=== PATIENT | male | born 1950 | race Caucasian/White ===

== ENCOUNTER 2016-12-19 13:34 | Inpatient (IN) | payer OTHER ==
[2016-12-19] VITALS (8 sets, daily range): BP systolic 121–157; BP diastolic 57–103
--- NOTE | 2016-12-19 16:16 | PDOC ---
PROGRESS NOTES Subjective Subjective Pt. with obstructing 10 X 5 mm right proximal ureteral stone Objective Objective right proximal ureteral stone Physical Exam Physical Exam Tender right flank and abdomen Assessment Assessment I discussed with the patient his stone and we discussed the options, alternatives, benefits, risks, and possible complications of medical expulsive therapy vs. surgical intervention with cystoscopy, right retrograde pyelogram, and possible right ureteral stent placement. Pt. understands and wishes to proceed with operation. Will proceed accordingly. Comment Review of Relevant I have reviewed the following items pili (where applicable) has been applied. LYLA VALLE MD Dec 19, 2016 16:16
[2016-12-19] MEDS ORDERED: PROPOFOL 20 ML IV ONE (16:26)
[2016-12-19] MEDS ORDERED: LIDOCAINE 1% PF 5 ML VIAL. ONE (16:26)
[2016-12-19] MEDS ORDERED: ONDANSETRON PF 4 MG/2 ML VIAL. ONE ×2 (16:26→17:35)
[2016-12-19] MEDS ORDERED: CEFAZOLIN 2GM PREMIX 50 ML IV ONE ×2 (16:30→16:45)
[2016-12-19] MEDS ORDERED: IOHEXOL 300 MG/ML 50 ML VIAL. ONE (16:43)
[2016-12-19] MEDS ORDERED: LIDOCAINE 2% JELLY 6ML IN APPLICATOR. ONE (16:43)
[2016-12-19] MEDS ORDERED: FENTANYL PF 100 MCG/2 ML VIAL. ONE (16:52)
[2016-12-19] MEDS ORDERED: DEXAMETHASONE SOD PHOS 20 MG/5 ML VIAL. ONE (17:35)
[2016-12-19] MEDS ORDERED: FAMOTIDINE 20 MG/2 ML VIAL ONE (17:35)
[2016-12-19] MEDS ORDERED: IV RINGERS,LACTATED 1000ML 1,000 ML IV SCH (17:48)
[2016-12-19] MEDS ORDERED: HYDROMORPHONE 2 MG/ML VIAL. IV PRN (18:00)
[2016-12-19] MEDS ORDERED: MORPHINE SULFATE 2 MG/ML DISP.SYRIN. IV PRN ×2 (18:00→22:30)
[2016-12-19] MEDS ORDERED: ONDANSETRON PF 4 MG/2 ML VIAL. IV PRN (18:00)
[2016-12-19] MEDS ORDERED: LIDOCAINE 1% 1 ML SYRINGE. ID PRN (18:00)
[2016-12-19] MEDS ORDERED: PROCHLORPERAZINE 10 MG/2 ML VIAL. IV PRN (18:00)
[2016-12-19] MEDS ORDERED: FENTANYL PF 100 MCG/2 ML VIAL. IV PRN (18:00)
[2016-12-19] MEDS ORDERED: SEVOFLURANE 31 TO 60 MINUTES. IH ONE (18:05)
[2016-12-19] MEDS ORDERED: SEVOFLURANE 16 TO 30 MINUTES. IH ONE (18:05)
[2016-12-19] MEDS ORDERED: SEVOFLURANE 61 TO 120 MINUTES. IH ONE (18:05)
[2016-12-19] MEDS ORDERED: METF500T4 PO (18:08)
--- NOTE | 2016-12-19 18:16 | PDOC4 ---
Operative Note Operative Note pre-op dx-right ureteral stone post-op dx-same with urethral stricture procedure-cystoscopy, right retrograde pyelogram, right ureteral stent placement , smith catheter placement surgeon-danitza diaz-general Pt. to PACU in stable condition LYLA VALLE MD Dec 19, 2016 18:16
[2016-12-19] MEDS: FENTANYL PF 100 MCG/2 ML VIAL. IV PRN ×3 (18:36→21:02)
[2016-12-19] MEDS ORDERED: PNEUMOCOCCAL VAX SCREEN BY RX. MC PRN (18:45)
--- NOTE | 2016-12-19 22:38 | OP ---
DATE OF SURGERY: 12/19/2016 OPERATION: Cystoscopy, right retrograde pyelogram; right ureteral stent placement and Tavares catheter placement. SURGEON: Lyla Atkinson MD ANESTHESIA: General. PREOPERATIVE DIAGNOSIS: Right ureteral stone. POSTOPERATIVE DIAGNOSIS: Right ureteral stone with urethral stricture. INDICATIONS: The patient is a very pleasant 66-year-old white male, who presented with right-sided flank and abdominal pain, was found to have a 10 x 5 mm right proximal ureteral stone with obstruction. The patient continues to have right renal colic. I discussed with the patient the option of alternatives, benefits, risks and possible complications of medical expulsive therapy versus surgical intervention with cystoscopy, right retrograde pyelogram, possible right ureteral stent placement. He understands this and he wish to proceed ahead with operation. DESCRIPTION OF PROCEDURE: After obtaining informed consent, the patient was taken to operating room and after an excellent general anesthetic, the patient was placed in a dorsolithotomy position. Groin was prepped and draped in sterile fashion. The patient was preloaded with IV antibiotics. Panendoscopy and cystoscopy were then performed with the 30 and 70-degree lens and the 21-Frisian cystoscope sheath. Penile urethra was found grossly normal. The patient noted to have a fairly tight, but soft bulbar urethral stricture, which was able to be dilated with the beak of the cystoscope under direct vision. External sphincter appeared intact. Prostatic urethra showed some moderate bilobar enlargement. Bladder was entered and inspected. The patient noted to have moderate trabeculation of bladder. Both ureteral orifices were identified and found to be grossly patent. On fluoroscopy, the stone was seen in the area of the right proximal ureter, right retrograde pyelogram was performed and the filling defect was seen in the right proximal ureter, consistent with the patient's stone with dilation of the right proximal ureter, renal pelvis and calices. Following this, floppy-tipped ZIPwire was passed up the right ureter, past the stone to the right kidney and it appeared that the stone rolled back to the right renal pelvis at the time of the floppy-tipped ZIPwire placement. Following this, a 6 x 28 double-J stent was then passed up the ZIPwire, placing one curl in the renal pelvis and the other curl in the bladder and the ZIPwire removed. Stent position was confirmed with fluoroscopy and direct vision, found to be in good position. Following this, the cystoscope was withdrawn from the patient and a 16-Frisian Tavares catheter placed per urethra and bladder connected to gravity drainage. Clear drainage was noted. Therefore, Tavares balloon was inflated and the catheter connected to gravity drainage and secured the patient's left thigh with a StatLock. The patient tolerated the procedure very well, was taken to recovery room in stable condition. Plan will be to remove the Tavares catheter in the first postoperative morning then the patient discharged home and then have him follow up with Urology in the next week ____ schedule definitive treatment of the stone as an outpatient with either ESWL or ureteroscopy and laser lithotripsy. LYLA ATKINSON MD DR: SANGEETA/alis JOB#: [id number] / [id number]
[2016-12-19] MEDS: HYDROCODONE/APAP 5/325MG TABLET. PO PRN (23:33)
[2016-12-19] MEDS: DOCUSATE SODIUM 100 MG CAPSULE. PO SCH (23:33)
[2016-12-19] MEDS: MORPHINE SULFATE 4 MG/ML DISP.SYRIN. IV PRN (23:34)
[2016-12-19] MEDS: IV NORMAL SALINE 1000ML BAG 1,000 ML IV SCH (23:35)
--- NOTE | 2016-12-20 00:21 | HP ---
ADMIT DATE: 12/19/2016 CHIEF COMPLAINT: Flank pain. HISTORY OF PRESENT ILLNESS: The patient is a pleasant middle-aged male who presents with right flank pain has been occurring for several days. IMAGING STUDIES: The ER showing a right 9 mm stone, the ER doctor has called me, we are transferring the patient for Urology consultation. The patient has just been taken to the OR for cystoscopy with ureteral stent placement. I discussed the case with Dr. Atkinson. The patient is now being examined in the postop area. PAST MEDICAL HISTORY: Diabetes. ALLERGIES: None. FAMILY HISTORY: Renal stone. SOCIAL HISTORY: Does not drink, smoke or take drugs. MEDICATIONS: Reviewed, please refer to the MRAD. REVIEW OF SYSTEMS: Unobtainable, the patient is too confused. He is still ____. PHYSICAL EXAMINATION: VITAL SIGNS: Temperature afebrile, pulse 63, respirations 18, blood pressure 122/57. GENERAL: He is sleeping. In the postop area, he awakens, he is confused. HEART: Distant S1, S2. LUNGS: Clear. ABDOMEN: Soft, positive bowel sounds. EXTREMITIES: No edema. SKIN: No rashes. ENDOCRINE: No thyromegaly. LYMPHATICS: No cervical nodes. HEMATOPOIETIC: No bruising. LABORATORY DATA: Pending. ASSESSMENT AND PLAN: Postop cystoscopy with right ureteral stent placement with a 9 mm stone. The patient has been admitted. We were given IV fluids, IV antibiotics, IV narcotics. Hope to discharge tomorrow if he is doing better. ROOPA LOYOLA DO DR: JOSÉ LUIS/alis JOB#: [id number] / [id number]
[2016-12-20] MEDS: CEFAZOLIN SODIUM 1 GM in IV NORMAL SALINE 50ML 50 ML IV SCH ×3 (01:00→17:00)
[2016-12-20] MEDS: MORPHINE SULFATE 4 MG/ML DISP.SYRIN. IV PRN (02:20)
[2016-12-20 03:09] VITALS: BP 103/51
[2016-12-20 07:00] VITALS: BP 125/70
[2016-12-20 08:03] LABS: HEMATOCRIT 41.9 % (39.0-53.0); HEMOGLOBIN 13.9 g/dL (13.0-17.5); RED BLOOD COUNT 4.66 x10^6/uL (4.30-5.70); RED CELL DISTRIBUTION WIDTH 13.3 % (11.5-14.5); WHITE BLOOD COUNT 10.9 x10^3/uL (4.0-11.0)
[2016-12-20 08:31] LABS: CALCIUM 8.2 mg/dL (8.5-10.1); CREATININE 1.2 mg/dL (0.7-1.3); POTASSIUM 4.1 mmol/L (3.5-5.1)
--- NOTE | 2016-12-20 08:39 | PDOC ---
PROGRESS NOTES Subjective Subjective Pt. feeling ok Objective Objective Vital Signs Date Time Temp Pulse Resp B/P Pulse Ox O2 Delivery O2 Flow Rate FiO2 12/20/16 07:00 98.2 55 20 125/70 96 Room Air 98.2 12/19/16 18:43 10.0 Intake and Output 12/20/16 07:00 Intake Total 1080 ml Output Total 1150 ml Balance -70 ml Intake Oral 480 ml IV Total 600 ml Output Urine Total 1150 ml Estimated Blood Loss 0 ml Physical Exam Physical Exam smith in place urine clear Assessment Assessment Smith removed Home today Follow up 1-2 weeks Probable ESWL in 2-3 weeks Comment Review of Relevant I have reviewed the following items pili (where applicable) has been applied. Labs Laboratory Tests Test 12/19/16 16:50 12/20/16 06:50 Glucose (Fingerstick) 125mg/dL (70-99) White Blood Count 10.9x10^3/uL (4.0-11.0) Red Blood Count 4.66x10^6/uL (4.30-5.70) Hemoglobin 13.9g/dL (13.0-17.5) Hematocrit 41.9% (39.0-53.0) Mean Corpuscular Volume 90fL (79-100) Mean Corpuscular Hemoglobin 30pg (25-35) Mean Corpuscular Hemoglobin Concent 33g/dL (31-37) Red Cell Distribution Width 13.3% (11.5-14.5) Platelet Count 192x10^3/uL (140-400) Sodium Level 141mmol/L (136-145) Potassium Level 4.1mmol/L (3.5-5.1) Chloride Level 106mmol/L (98-107) Carbon Dioxide Level 24mmol/L (21-32) Anion Gap 11 (6-14) Blood Urea Nitrogen 18mg/dL (8-26) Creatinine 1.2mg/dL (0.7-1.3) Estimated GFR (Cockcroft-Gault) 61.0 Glucose Level 161mg/dL (70-99) Calcium Level 8.2mg/dL (8.5-10.1) Laboratory Tests Test 12/19/16 16:50 12/20/16 06:50 Glucose (Fingerstick) 125mg/dL (70-99) White Blood Count 10.9x10^3/uL (4.0-11.0) Red Blood Count 4.66x10^6/uL (4.30-5.70) Hemoglobin 13.9g/dL (13.0-17.5) Hematocrit 41.9% (39.0-53.0) Mean Corpuscular Volume 90fL (79-100) Mean Corpuscular Hemoglobin 30pg (25-35) Mean Corpuscular Hemoglobin Concent 33g/dL (31-37) Red Cell Distribution Width 13.3% (11.5-14.5) Platelet Count 192x10^3/uL (140-400) Sodium Level 141mmol/L (136-145) Potassium Level 4.1mmol/L (3.5-5.1) Chloride Level 106mmol/L (98-107) Carbon Dioxide Level 24mmol/L (21-32) Anion Gap 11 (6-14) Blood Urea Nitrogen 18mg/dL (8-26) Creatinine 1.2mg/dL (0.7-1.3) Estimated GFR (Cockcroft-Gault) 61.0 Glucose Level 161mg/dL (70-99) Calcium Level 8.2mg/dL (8.5-10.1) Medications Current Medications Ondansetron HCl 4 mg 4 mg STK-MED ONCE .ROUTE ; Start 12/19/16 at 16:26; Stop at 16:27; Status DC Propofol (Diprivan) 20 ml @ As Directed STK-MED ONCE IV ; Start 12/19/16 at 16: 26; Stop 12/19/16 at 16:27; Status DC Lidocaine HCl 5 ml 5 ml STK-MED ONCE .ROUTE ; Start 12/19/16 at 16:26; Stop 06/27 at 16:27; Status DC Cefazolin Sodium/ Dextrose (Ancef 2gm Premix) 50 ml @ As Directed STK-MED ONCE IV ; Start 12/19/16 at 16:30; Stop 12/19/16 at 16:31; Status DC Lidocaine HCl (Glydo (Lidocaine) Jelly) 6 judy STK-MED ONCE .ROUTE Last administered on 12/19/16t 18:02; Start 12/19/16 at 16:43; Stop 12/19/16 at 16:44 ; Status DC Iohexol (Omnipaque 300 Mg/ml) 50 ml STK-MED ONCE .ROUTE Last administered on 17:17; Start 12/19/16 at 16:43; Stop 12/19/16 at 16:44; Status DC Lidocaine HCl 6 judy 6 judy STK-MED ONCE .ROUTE Last administered on 12/19/16 18 :02; Start 12/19/16 at 16:43; Stop 12/19/16 at 16:44; Status DC Cefazolin Sodium/ Dextrose (Ancef 2gm Premix) 50 ml @ 100 mls/hr 1X ONCE IV Last administered on 12/19/16 17:21; Start 12/19/16 at 16:45; Stop 12/19/16 at 17:14; Status DC Fentanyl Citrate (Fentanyl 2ml Vial) 100 mcg STK-MED ONCE .ROUTE ; Start at 16:52; Stop 12/19/16 at 16:53; Status DC Dexamethasone Sodium Phosphate (Decadron) 20 mg STK-MED ONCE .ROUTE ; Start 06/27 at 17:35; Stop 12/19/16 at 17:36; Status DC Famotidine (Pepcid) 20 mg STK-MED ONCE .ROUTE ; Start 12/19/16 at 17:35; Stop at 17:36; Status DC Ondansetron HCl (Zofran) 4 mg STK-MED ONCE .ROUTE ; Start 12/19/16 at 17:35; Stop 12/19/16 at 17:36; Status DC Ondansetron HCl (Zofran) 4 mg PRN Q6HRS PRN IV NAUSEA/VOMITING; Start 12/19/16 at 18:00; Stop 12/20/16 at 17:59 Fentanyl Citrate (Fentanyl 2ml Vial) 25 mcg PRN Q5MIN PRN IV MILD PAIN; Start 12/19/16 at 18:00; Stop 12/20/16 at 17:59 Fentanyl Citrate (Fentanyl 2ml Vial) 50 mcg PRN Q5MIN PRN IV MODERATE PAIN Last administered on 12/19/16 21:02; Start 12/19/16 at 18:00; Stop 12/20/16 at 17:59 Morphine Sulfate 1 mg 1 mg PRN Q10MIN PRN IV SEVERE PAIN; Start 12/19/16 at 18: 00; Stop 12/20/16 at 17:59 Lactated Ringer's (Iv Lactated Ringers) 1,000 ml @ 0 mls/hr Q0M IV ; Start 06/27 at 17:48; Stop 12/20/16 at 05:47; Status DC Lidocaine HCl 2 ml PRN 1X PRN ID PRIOR TO IV START; Start 12/19/16 at 18:00; Stop 12/20/16 at 17:59 Hydromorphone HCl (Dilaudid) 0.5 mg PRN Q10MIN PRN IV SEV PAIN, Second choice; Start 12/19/16 at 18:00; Stop 12/20/16 at 17:59 Prochlorperazine Edisylate (Compazine) 5 mg PACU PRN PRN IV NAUSEA, MRX1; Start 12/19/16 at 18:00; Stop 12/20/16 at 17:59 Sevoflurane (Ultane) 60 ml STK-MED ONCE IH ; Start 12/19/16 at 18:05; Stop 12/19 at 18:06; Status DC Sevoflurane (Ultane) 15 ml STK-MED ONCE IH ; Start 12/19/16 at 18:05; Stop 12/19 at 18:06; Status DC Sevoflurane 30 ml 30 ml STK-MED ONCE IH ; Start 12/19/16 at 18:05; Stop at 18:06; Status DC Cefazolin Sodium/ Sodium Chloride (Ancef/Iv Sodium Chloride 0.9% 50ml) 50 ml @ 100 mls/hr Q8H IV Last administered on 12/20/16t 01:00; Start 12/20/16 at 01:00 Pneumococcal Polyvalent Vaccine (Do NOT chart on this placeholder) 1 each PRN 1X PRN MC SEE COMMENTS; Start 12/19/16 at 18:45; Status UNV Pneumococcal Polyvalent Vaccine (Pneumovax 23) 0.5 ml ONCE ONCE VAX IM ; Start 12/20/16 at 09:00; Stop 12/20/16 at 09:01 Morphine Sulfate 2 mg PRN Q2HR PRN IV PAIN; Start 12/19/16 at 22:30 Morphine Sulfate 4 mg PRN Q2HR PRN IV PAIN Last administered on 12/20/16 02:20 ; Start 12/19/16 at 22:30 Acetaminophen/ Hydrocodone Bitart (Lortab 5/325) 1 tab PRN Q4HRS PRN PO PAIN Last administered on 12/19/16 23:33; Start 12/19/16 at 22:30 Docusate Sodium 100 mg 100 mg BID PO Last administered on 12/19/16 23:33; Start 12/19/16 at 22:30 Sodium Chloride (Iv Sodium Chloride 0.9% 1000ml Bag) 1,000 ml @ 75 mls/hr [id number] IV Last administered on 12/19/16 23:35; Start 12/19/16 at 22:30 Active Scripts Active Reported Metformin Hcl 500 Mg Tablet 1 Tab PO BID Vitals/I & O Vital Sign - Last 24 Hours 12/19/16 12/19/16 12/19/16 12/19/16 16:00 16:00 16:30 18:12 Temp 97.4 97.8 97.4 97.8 Pulse 73 57 Resp 18 20 B/P 121/87 158/91 Pulse Ox 98 97 O2 Delivery Room Air Room Air Room Air Mask O2 Flow Rate 10 12/19/16 12/19/16 12/19/16 12/19/16 18:12 18:27 18:36 18:40 Temp 97.4 97.4 Pulse 83 62 Resp 18 18 B/P 154/81 149/78 Pulse Ox 95 100 100 O2 Delivery Simple Mask Simple Mask Simple Mask Room Air O2 Flow Rate 10 10 10.0 12/19/16 12/19/16 12/19/16 12/19/16 18:42 18:43 19:15 19:30 Temp 99.1 98.1 98.3 99.1 98.1 98.3 Pulse 62 95 72 Resp 18 18 20 B/P 157/73 147/76 157/71 Pulse Ox 98 100 95 94 O2 Delivery Room Air Room Air Room Air Room Air O2 Flow Rate 10.0 12/19/16 12/19/16 12/19/16 12/19/16 19:45 20:00 20:15 20:45 Temp 98.3 98.1 98.3 98.3 98.1 98.3 Pulse 68 61 63 Resp 18 18 18 B/P 148/89 140/74 149/84 Pulse Ox 94 95 95 O2 Delivery Room Air Room Air Room Air Room Air 12/19/16 12/19/16 12/19/16 12/19/16 21:02 21:45 21:53 23:29 Temp 98.1 98.0 98.1 98.0 Pulse 58 70 Resp 18 18 18 B/P 122/57 149/103 Pulse Ox 98 100 O2 Delivery Room Air Room Air Room Air Room Air 12/19/16 12/19/16 12/20/16 12/20/16 23:33 23:34 00:38 02:20 Resp 18 18 18 18 O2 Delivery Room Air Room Air Room Air Room Air 12/20/16 12/20/16 12/20/16 03:09 03:09 07:00 Temp 98.1 98.2 98.1 98.2 Pulse 67 55 Resp 18 18 20 B/P 103/51 125/70 Pulse Ox 95 96 O2 Delivery Room Air Room Air Room Air Intake and Output 12/19/16 12/19/16 12/20/16 15:00 23:00 07:00 Intake Total 600 ml 480 ml Output Total 0 ml 1150 ml Balance 600 ml -670 ml LYLA VALLE MD Dec 20, 2016 08:39
[2016-12-20] MEDS: DOCUSATE SODIUM 100 MG CAPSULE. PO SCH (08:45)
[2016-12-20] MEDS ORDERED: PNEUMOC CONJ VACC 23-VALENT 0.5 ML VIAL. VAX IM ONE (09:00)
--- NOTE | 2016-12-20 10:38 | RAD ---
KUB, 12/20/2016: History: Check stent placement This exam is correlated with an outside CT study from 12/19/2016. A right ureteral stent has been placed in satisfactory position. The calculus which previously was positioned in the proximal right ureter appears to have been displaced back into the right renal collecting system. A similar sized calculus is again noted in the lower pole of the left kidney. The abdominal gas pattern is unremarkable. There is no evidence of organomegaly. IMPRESSION: 1. The right ureteral stent is in satisfactory position. 2. The proximal right ureteral calculus has been displaced back into the right renal collecting system. 3. Nonobstructing left intrarenal calculus.
[2016-12-20 11:00] VITALS: BP 130/62
--- NOTE | 2016-12-20 11:35 | CONS ---
DATE OF CONSULTATION: 12/19/2016 LOCATION: The patient is in room 432. HISTORY OF PRESENT ILLNESS: The patient is a very pleasant 66-year-old white male who was transferred over from [place] with a right proximal ureteral stone. The patient first started becoming symptomatic this morning with right flank and abdominal pain. The patient with no prior history of any stones. The patient continues to have right flank and abdominal pain. Past medical history is significant for diabetes and hypertension. The patient takes metformin for his diabetes, but has not been taking any medicines for his hypertension. He has no known drug allergies. He has had previous orthopedic operations in the past. No urologic operations. The patient's white count is 12.0, creatinine is 1.4. The patient's CT abdomen and pelvis show a 9 x 5 mm obstructing calculus in the right proximal ureter with moderate perinephric edema and a nonobstructing left intrarenal calculus measuring about 10 mm. PHYSICAL EXAMINATION: ABDOMEN: The patient with tenderness in the right flank and right upper and middle abdomen, otherwise soft, nontender in the rest of the abdomen. GENITOURINARY: Testes are descended bilaterally. No inguinal hernias. Phallus within normal limits. RECTAL: Good sphincter tone. Prostate smooth, nontender, without nodules, overall size 25 grams. PLAN: I talked with the patient concerning his right ureteral stone and we discussed the options, alternatives, benefits, risks and possible complications of medical expulsive therapy versus surgical intervention with cystoscopy, right retrograde pyelogram, and right ureteral stent placement to get him unobstructed. He understands this and does wish to proceed with operation, we will therefore proceed accordingly. I certainly appreciate being allowed to participate in this patient's care. LYLA VALLE MD DR: SANGEETA/alis JOB#: [id number] / [id number]
[2016-12-20] MEDS: IV NORMAL SALINE 1000ML BAG 1,000 ML IV SCH (11:50)
--- NOTE | 2016-12-20 13:43 | PDOC ---
PROGRESS NOTES Chief Complaint Chief Complaint Right Flank pain 9mm obstructing Kidney stone s/p cystoscopy with uretheral stent placement Diabetes Mellitus, non-insulin dependent History of Present Illness History of Present Illness Patient seen and evaluated at bedside. No acute events overnight. Tavares removed per Dr. Atkinson. Patient reports continuing flank pain and urethral pain. d/w nurse. Vitals Vitals Vital Signs Date Time Temp Pulse Resp B/P Pulse Ox O2 Delivery O2 Flow Rate FiO2 12/20/16 11:00 98.1 61 20 130/62 96 Room Air 98.1 12/19/16 18:43 10.0 Physical Exam General: Alert, Oriented X3, No acute distress Heart: Regular rate, Normal S1 Lungs: Clear, Other (negative accessory muscle use ) Abdomen: Normal bowel sounds, Soft, No tenderness, Other (R flank tenderness to palpation. ) Extremities: No clubbing, No cyanosis, No edema Skin: No rashes, No significant lesion, Other (Negative skin breakdown, erythema, or bleeding to glans penis. ) Labs LABS Laboratory Tests Test 12/19/16 16:50 12/20/16 06:50 Glucose (Fingerstick) 125mg/dL (70-99) White Blood Count 10.9x10^3/uL (4.0-11.0) Red Blood Count 4.66x10^6/uL (4.30-5.70) Hemoglobin 13.9g/dL (13.0-17.5) Hematocrit 41.9% (39.0-53.0) Mean Corpuscular Volume 90fL (79-100) Mean Corpuscular Hemoglobin 30pg (25-35) Mean Corpuscular Hemoglobin Concent 33g/dL (31-37) Red Cell Distribution Width 13.3% (11.5-14.5) Platelet Count 192x10^3/uL (140-400) Sodium Level 141mmol/L (136-145) Potassium Level 4.1mmol/L (3.5-5.1) Chloride Level 106mmol/L (98-107) Carbon Dioxide Level 24mmol/L (21-32) Anion Gap 11 (6-14) Blood Urea Nitrogen 18mg/dL (8-26) Creatinine 1.2mg/dL (0.7-1.3) Estimated GFR (Cockcroft-Gault) 61.0 Glucose Level 161mg/dL (70-99) Calcium Level 8.2mg/dL (8.5-10.1) Review of Systems Review of Systems (+) r flank pain (+) penile pain Denies chest pain, sob, abdominal pain, n/v/d, or fever/chills. Assessment and Plan Assessmemt and Plan Problems Medical Problems: (1) Renal stone Status: Acute Assessment: 1.) R 9mm obstructing Kidney stone 2.) POD#1 s/p cystoscopy with uretheral stent placement 3.) Diabetes Mellitus, non-insulin dependent Plan: 1.) continue IVF and pain control 2.) discharge agreeable with Dr. Atkinson; Rx for pyridine, ciprofloxacin, and pain management. 3.) f/u with Dr. Atkinson in 1-2 weeks; Probable ESWL in 2-3 weeks. f/u with pcp 4.) continue home medications 5.) activity as tolerated Problems: Comment Review of Relevant I have reviewed the following items pili (where applicable) has been applied. Labs Laboratory Tests Test 12/19/16 16:50 12/20/16 06:50 Glucose (Fingerstick) 125mg/dL (70-99) White Blood Count 10.9x10^3/uL (4.0-11.0) Red Blood Count 4.66x10^6/uL (4.30-5.70) Hemoglobin 13.9g/dL (13.0-17.5) Hematocrit 41.9% (39.0-53.0) Mean Corpuscular Volume 90fL (79-100) Mean Corpuscular Hemoglobin 30pg (25-35) Mean Corpuscular Hemoglobin Concent 33g/dL (31-37) Red Cell Distribution Width 13.3% (11.5-14.5) Platelet Count 192x10^3/uL (140-400) Sodium Level 141mmol/L (136-145) Potassium Level 4.1mmol/L (3.5-5.1) Chloride Level 106mmol/L (98-107) Carbon Dioxide Level 24mmol/L (21-32) Anion Gap 11 (6-14) Blood Urea Nitrogen 18mg/dL (8-26) Creatinine 1.2mg/dL (0.7-1.3) Estimated GFR (Cockcroft-Gault) 61.0 Glucose Level 161mg/dL (70-99) Calcium Level 8.2mg/dL (8.5-10.1) Laboratory Tests Test 12/19/16 16:50 12/20/16 06:50 Glucose (Fingerstick) 125mg/dL (70-99) White Blood Count 10.9x10^3/uL (4.0-11.0) Red Blood Count 4.66x10^6/uL (4.30-5.70) Hemoglobin 13.9g/dL (13.0-17.5) Hematocrit 41.9% (39.0-53.0) Mean Corpuscular Volume 90fL (79-100) Mean Corpuscular Hemoglobin 30pg (25-35) Mean Corpuscular Hemoglobin Concent 33g/dL (31-37) Red Cell Distribution Width 13.3% (11.5-14.5) Platelet Count 192x10^3/uL (140-400) Sodium Level 141mmol/L (136-145) Potassium Level 4.1mmol/L (3.5-5.1) Chloride Level 106mmol/L (98-107) Carbon Dioxide Level 24mmol/L (21-32) Anion Gap 11 (6-14) Blood Urea Nitrogen 18mg/dL (8-26) Creatinine 1.2mg/dL (0.7-1.3) Estimated GFR (Cockcroft-Gault) 61.0 Glucose Level 161mg/dL (70-99) Calcium Level 8.2mg/dL (8.5-10.1) Medications Current Medications Ondansetron HCl 4 mg 4 mg STK-MED ONCE .ROUTE ; Start 12/19/16 at 16:26; Stop at 16:27; Status DC Propofol (Diprivan) 20 ml @ As Directed STK-MED ONCE IV ; Start 12/19/16 at 16: 26; Stop 12/19/16 at 16:27; Status DC Lidocaine HCl 5 ml 5 ml STK-MED ONCE .ROUTE ; Start 12/19/16 at 16:26; Stop 06/27 at 16:27; Status DC Cefazolin Sodium/ Dextrose (Ancef 2gm Premix) 50 ml @ As Directed STK-MED ONCE IV ; Start 12/19/16 at 16:30; Stop 12/19/16 at 16:31; Status DC Lidocaine HCl (Glydo (Lidocaine) Jelly) 6 judy STK-MED ONCE .ROUTE Last administered on 12/19/16 18:02; Start 12/19/16 at 16:43; Stop 12/19/16 at 16:44 ; Status DC Iohexol (Omnipaque 300 Mg/ml) 50 ml STK-MED ONCE .ROUTE Last administered on 17:17; Start 12/19/16 at 16:43; Stop 12/19/16 at 16:44; Status DC Lidocaine HCl 6 judy 6 judy STK-MED ONCE .ROUTE Last administered on 12/19/16 18 :02; Start 12/19/16 at 16:43; Stop 12/19/16 at 16:44; Status DC Cefazolin Sodium/ Dextrose (Ancef 2gm Premix) 50 ml @ 100 mls/hr 1X ONCE IV Last administered on 12/19/16 17:21; Start 12/19/16 at 16:45; Stop 12/19/16 at 17:14; Status DC Fentanyl Citrate (Fentanyl 2ml Vial) 100 mcg STK-MED ONCE .ROUTE ; Start at 16:52; Stop 12/19/16 at 16:53; Status DC Dexamethasone Sodium Phosphate (Decadron) 20 mg STK-MED ONCE .ROUTE ; Start 06/27 at 17:35; Stop 12/19/16 at 17:36; Status DC Famotidine (Pepcid) 20 mg STK-MED ONCE .ROUTE ; Start 12/19/16 at 17:35; Stop at 17:36; Status DC Ondansetron HCl (Zofran) 4 mg STK-MED ONCE .ROUTE ; Start 12/19/16 at 17:35; Stop 12/19/16 at 17:36; Status DC Ondansetron HCl (Zofran) 4 mg PRN Q6HRS PRN IV NAUSEA/VOMITING; Start 12/19/16 at 18:00; Stop 12/20/16 at 17:59 Fentanyl Citrate (Fentanyl 2ml Vial) 25 mcg PRN Q5MIN PRN IV MILD PAIN; Start 12/19/16 at 18:00; Stop 12/20/16 at 17:59 Fentanyl Citrate (Fentanyl 2ml Vial) 50 mcg PRN Q5MIN PRN IV MODERATE PAIN Last administered on 12/19/16t 21:02; Start 12/19/16 at 18:00; Stop 12/20/16 at 17:59 Morphine Sulfate 1 mg 1 mg PRN Q10MIN PRN IV SEVERE PAIN; Start 12/19/16 at 18: 00; Stop 12/20/16 at 17:59 Lactated Ringer's (Iv Lactated Ringers) 1,000 ml @ 0 mls/hr Q0M IV ; Start 06/27 at 17:48; Stop 12/20/16 at 05:47; Status DC Lidocaine HCl 2 ml PRN 1X PRN ID PRIOR TO IV START; Start 12/19/16 at 18:00; Stop 12/20/16 at 17:59 Hydromorphone HCl (Dilaudid) 0.5 mg PRN Q10MIN PRN IV SEV PAIN, Second choice; Start 12/19/16 at 18:00; Stop 12/20/16 at 17:59 Prochlorperazine Edisylate (Compazine) 5 mg PACU PRN PRN IV NAUSEA, MRX1; Start 12/19/16 at 18:00; Stop 12/20/16 at 17:59 Sevoflurane (Ultane) 60 ml STK-MED ONCE IH ; Start 12/19/16 at 18:05; Stop 12/19 at 18:06; Status DC Sevoflurane (Ultane) 15 ml STK-MED ONCE IH ; Start 12/19/16 at 18:05; Stop 12/19 at 18:06; Status DC Sevoflurane 30 ml 30 ml STK-MED ONCE IH ; Start 12/19/16 at 18:05; Stop at 18:06; Status DC Cefazolin Sodium/ Sodium Chloride (Ancef/Iv Sodium Chloride 0.9% 50ml) 50 ml @ 100 mls/hr Q8H IV Last administered on 12/20/16t 08:45; Start 12/20/16 at 01:00 Pneumococcal Polyvalent Vaccine (Do NOT chart on this placeholder) 1 each PRN 1X PRN MC SEE COMMENTS; Start 12/19/16 at 18:45; Status UNV Pneumococcal Polyvalent Vaccine (Pneumovax 23) 0.5 ml ONCE ONCE VAX IM Last administered on 12/20/16 08:56; Start 12/20/16 at 09:00; Stop 12/20/16 at 09:01 ; Status DC Morphine Sulfate 2 mg PRN Q2HR PRN IV PAIN Last administered on 12/20/16 08:46 ; Start 12/19/16 at 22:30 Morphine Sulfate 4 mg PRN Q2HR PRN IV PAIN Last administered on 12/20/16 02:20 ; Start 12/19/16 at 22:30 Acetaminophen/ Hydrocodone Bitart (Lortab 5/325) 1 tab PRN Q4HRS PRN PO PAIN Last administered on 12/19/16 23:33; Start 12/19/16 at 22:30 Docusate Sodium 100 mg 100 mg BID PO Last administered on 12/20/16 08:45; Start 12/19/16 at 22:30 Sodium Chloride (Iv Sodium Chloride 0.9% 1000ml Bag) 1,000 ml @ 75 mls/hr [id number] IV Last administered on 12/19/16 23:35; Start 12/19/16 at 22:30 Active Scripts Active Reported Metformin Hcl 500 Mg Tablet 1 Tab PO BID Vitals/I & O Vital Sign - Last 24 Hours 12/19/16 12/19/16 12/19/16 12/19/16 16:00 16:00 16:30 18:12 Temp 97.4 97.8 97.4 97.8 Pulse 73 57 Resp 18 20 B/P 121/87 158/91 Pulse Ox 98 97 O2 Delivery Room Air Room Air Room Air Mask O2 Flow Rate 10 12/19/16 12/19/16 12/19/16 12/19/16 18:12 18:27 18:36 18:40 Temp 97.4 97.4 Pulse 83 62 Resp 18 18 B/P 154/81 149/78 Pulse Ox 95 100 100 O2 Delivery Simple Mask Simple Mask Simple Mask Room Air O2 Flow Rate 10 10 10.0 12/19/16 12/19/16 12/19/16 12/19/16 18:42 18:43 19:15 19:30 Temp 99.1 98.1 98.3 99.1 98.1 98.3 Pulse 62 95 72 Resp 18 18 20 B/P 157/73 147/76 157/71 Pulse Ox 98 100 95 94 O2 Delivery Room Air Room Air Room Air Room Air O2 Flow Rate 10.0 12/19/16 12/19/16 12/19/16 12/19/16 19:45 20:00 20:15 20:45 Temp 98.3 98.1 98.3 98.3 98.1 98.3 Pulse 68 61 63 Resp 18 18 18 B/P 148/89 140/74 149/84 Pulse Ox 94 95 95 O2 Delivery Room Air Room Air Room Air Room Air 12/19/16 12/19/16 12/19/16 12/19/16 21:02 21:45 21:53 23:29 Temp 98.1 98.0 98.1 98.0 Pulse 58 70 Resp 18 18 18 B/P 122/57 149/103 Pulse Ox 98 100 O2 Delivery Room Air Room Air Room Air Room Air 12/19/16 12/19/16 12/20/16 12/20/16 23:33 23:34 00:38 02:20 Resp 18 18 18 18 O2 Delivery Room Air Room Air Room Air Room Air 12/20/16 12/20/16 12/20/16 12/20/16 03:09 03:09 07:00 08:46 Temp 98.1 98.2 98.1 98.2 Pulse 67 55 Resp 18 18 20 B/P 103/51 125/70 Pulse Ox 95 96 O2 Delivery Room Air Room Air Room Air Room Air 12/20/16 12/20/16 09:30 11:00 Temp 98.1 98.1 Pulse 61 Resp 20 B/P 130/62 Pulse Ox 96 O2 Delivery Room Air Room Air Intake and Output 12/19/16 12/19/16 12/20/16 15:00 23:00 07:00 Intake Total 600 ml 480 ml Output Total 0 ml 1150 ml Balance 600 ml -670 ml ROOPA LOYOLA III DO Dec 20, 2016 13:43
[2016-12-20] MEDS: HYDROCODONE/APAP 5/325MG TABLET. PO PRN (13:59)
[2016-12-20 15:00] VITALS: BP 130/74
--- NOTE | 2016-12-21 20:08 | DS ---
DATE OF DISCHARGE: 12/20/2016 ADMISSION DIAGNOSES: Kidney stone. DISCHARGE DIAGNOSIS: Postop right ureteral stent placement. HOSPITAL COURSE: The patient is a pleasant 66-year-old male, who presented with a 9-mm kidney stone. He was admitted. We consulted Dr. Atkinson. He was taken for a ureteral stent. Post-procedure, he is doing better. We plan to discharge with close outpatient followup. DISPOSITION: Home. ACTIVITY: As tolerated. DIET: Low sodium. MEDICATIONS: Please see the MRAD. TOTAL TIME ON DISCHARGE: 33 minutes. ROOPA LOYOLA DO DR: JOSÉ LUIS/alis JOB#: [id number] / [id number]
== END 2016-12-20 18:45 | disposition home or self-care (01) | DRG 694 ==
LOC: 4 NORTH 16:01
PROVIDERS: ADMIT Internal Medicine; ATTEND Internal Medicine
PROC: BT1D1ZZ Fluoroscopy of Right Kidney, Ureter and Bladder using Low Osmolar Contrast (ICD-10-PCS; 2016-12-19)
PROC: 0T768DZ Dilation of Right Ureter with Intraluminal Device, Via Natural or Artificial Opening Endoscopic (ICD-10-PCS; principal; 2016-12-19 17:45)
DX: N20.2 Calculus of kidney with calculus of ureter (principal); E11.9 Type 2 diabetes mellitus without complications; I10 Essential (primary) hypertension; N35.9 Urethral stricture, unspecified; Z84.1 Family history of disorders of kidney and ureter
CPT/HCPCS: 36415; 74000; 74420; 80048; 82947; 85027; 90732; C1769; C2617; J0690; J1100; J2270; J2405; J2704; J3010; J7030; Q9967; S0028

== ENCOUNTER → 2017-01-17 | Outpatient (CLI) | payer OTHER ==
[2016-12-20 15:00] VITALS: BP 130/74
[~2017-01-17] MED LIST: METF500T4 PO; TAMS0.4C97 PO
--- NOTE | 2017-01-17 13:45 | RAD ---
Indication: Right flank pain and right stent placement. Time of exam 1335 hours. Correlation is made with prior exam from 12/20/2016. Right double-J nephroureteral stent remains in place. Calcific densities overlying the lower poles of both kidneys appears stable. No calculi along the course of the right stent are identified. Impression: Stable KUB when compared with exam from one month earlier.
== END | disposition home or self-care (01) ==
LOC: RAD 12:21
PROVIDERS: ATTEND Urology
DX: N20.0 Calculus of kidney (principal); R10.9 Unspecified abdominal pain
CPT/HCPCS: 74000

== ENCOUNTER 2017-01-22 00:03 | Inpatient (IN) | payer OTHER ==
[2017-01-21 23:55] VITALS: BP 148/82
[~2017-01-22] VITALS: Ht 180.3 cm; Wt 124.5 kg
[2017-01-22] VITALS (7 sets, daily range): BP systolic 132–154; BP diastolic 67–88
[~2017-01-22 00:03] MED LIST changes: -TAMS0.4C97 PO
[2017-01-22] MEDS ORDERED: MORPHINE SULFATE 2 MG/ML DISP.SYRIN. IV PRN (01:00)
[2017-01-22] MEDS: IV NORMAL SALINE 1000ML BAG 1,000 ML IV SCH ×3 (01:10→16:49)
[2017-01-22] MEDS: ONDANSETRON PF 4 MG/2 ML VIAL. IV PRN ×2 (01:11→08:28)
[2017-01-22] MEDS: MORPHINE SULFATE 4 MG/ML DISP.SYRIN. IV PRN ×2 (04:29→08:27)
[2017-01-22] MEDS ORDERED: TAMS0.4C97 PO (08:38)
[2017-01-22] MEDS ORDERED: DEXTROSE 50% 25 GM / 50ML DISP.SYRIN. IV PRN ×2 (13:30→14:00)
[2017-01-22] MEDS ORDERED: 0.9 % SODIUM CHLORIDE 10 ML DISP.SYRIN. IV PRN (13:30)
[2017-01-22] MEDS ORDERED: oxyCODONE IR 5 MG TABLET PO PRN (13:45)
[2017-01-22] MEDS ORDERED: PROCHLORPERAZINE 10 MG/2 ML VIAL. IV PRN (14:30)
[2017-01-22] MEDS: TAMSULOSIN 0.4 MG CAP.ER.24H. PO SCH (14:30)
--- NOTE | 2017-01-22 16:32 | HP ---
ADMIT DATE: 01/22/2017 CHIEF COMPLAINT: Urolithiasis. HOSPITAL COURSE: The patient is a 66-year-old gentleman with a recent history of urolithiasis on the right, which was addressed by stent placement and attempted lithotripsy, which unfortunately was unsuccessful. A ureteral stent was pulled just 4 days ago. Unfortunately, the patient had recurrent symptoms as with his first renal colic, and indeed, CAT scan once again showed an approximately 8.5 mm stone in the proximal right ureter. The patient had initially presented to [facility] Emergency Room, but was transferred to [facility] for further management and care under his urologist, Dr. Atkinson. PAST MEDICAL HISTORY: Diabetes, hypertension, nephrolithiasis as above. FAMILY HISTORY: Other members with renal stones as well. SOCIAL HISTORY: He is a welder fitter helper. No toxic habits, never smoked. ALLERGIES: No known drug allergies. HOME MEDICATIONS: Reconciled with [facility]. REVIEW OF SYSTEMS: Positive for right flank pain with radiation to the right groin. Appetite is poor, increased nausea with IV pain medications. Denies any hematuria. Rest of organ system review is negative. PHYSICAL EXAMINATION: VITAL SIGNS: From today show a blood pressure of 141/88, heart rate of 52, respiratory rate at 18. He is afebrile. GENERAL: This is a 66-year-old obese gentleman, alert and oriented, in mild distress from flank pain. HEENT: Shows no scleral icterus. NECK: Supple, without any lymphadenopathy. LUNGS: Clear to auscultation bilaterally. HEART: Has regular rate and rhythm. ABDOMEN: Massively obese, mild tenderness to palpation on the right, positive flank pain to auscultation. EXTREMITIES: Show no edema. SKIN: Warm, soft and dry. LABORATORY DATA: CBC with a WBC of 10.9, hemoglobin 13.9, platelets of 192. Chemistries with a BUN and creatinine of 18 and 1.2. Normal electrolytes. Glucose is well controlled. ASSESSMENT AND PLAN: The patient is a 66-year-old gentleman with renal stones, unfortunately recurrent urolithiasis. His urologist, Dr. Atkinson, is consulted. For his pain regimen, we will try a low dose oxycodone as he appears very sensitive to IV medications and narcotics in general. Morphine will be available as an emergency as well. Antiemetics with Zofran and Reglan will be added. As I do not anticipate he will undergo any procedure today, we will give him ADA diet for now, possible n.p.o. in a.m. pending plans by Dr. Atkinson. His fingersticks will be monitored closely. He confesses that he actually has not even been taking his metformin at home, as he feels best when his blood sugars in the 200s-300s. He feels very jittery when it comes to ranges where he is supposed to be i.e. less than 150. I had a long discussion with him that this is not acceptable and that he will have to get his body used to lower levels in a stepwise fashion. We will obtain hemoglobin A1c to assess his status chronically. The patient should be on an RICK inhibitor for renal protection with diabetes. Blood pressure itself is currently mildly elevated as well and can be addressed at the same time. We will hold off anticoagulation prophylaxis for now, say with a mechanical device. BONNIE MARION MD DR: UR/nts JOB#: [id number] / [id number] SYDNIE Fraire MD [facility]
[2017-01-22] MEDS: INSULIN ASPART 300 UNITS/3 ML INSULN.PEN SQ SCH (16:50)
[2017-01-23] VITALS (8 sets, daily range): BP systolic 122–172; BP diastolic 56–98
[2017-01-23] MEDS: IV NORMAL SALINE 1000ML BAG 1,000 ML IV SCH ×3 (00:36→16:36)
[2017-01-23] MEDS: INSULIN ASPART 300 UNITS/3 ML INSULN.PEN SQ SCH ×3 (08:00→17:00)
--- NOTE | 2017-01-23 08:50 | PDOC ---
PROGRESS NOTES Subjective Subjective Pt. with recurrent obstructing right proximal ureteral stone Objective Objective Vital Signs Date Time Temp Pulse Resp B/P (MAP) Pulse Ox O2 Delivery O2 Flow Rate FiO2 01/23/17 07:00 97.7 52 20 135/72 (93) 94 Room Air 97.7 Intake and Output 01/23/17 06:59 Intake Total 100 ml Output Total 1750 ml Balance -1650 ml Intake Oral 100 ml Output Urine Total 1750 ml # Voids 5 # Bowel Movements 1 Physical Exam Physical Exam Tender right flank and abdomen Plan Plan of Care Pt's stone was previously treated with stent and ESWL. Stone then moved from right kidney to proximal right ureter and obstructed kidney. I discussed the pt' s stone with him and we discussed the options, alternatives, benefits, risks, and possible complications of observation vs. intervention with cystoscopy, right retrograde pyelogram, possible right ureteroscopy and laser lithotripsy and stent placement. Pt. understands and wishes to proceed with operation. Will proceed accordingly. Comment Review of Relevant I have reviewed the following items pili (where applicable) has been applied. Labs Laboratory Tests Test 01/22/17 07:15 01/22/17 11:14 01/22/17 13:15 01/22/17 16:24 Glucose (Fingerstick) 147 mg/dL (70-99) 127 mg/dL (70-99) 108 mg/dL (70-99) 198 mg/dL (70-99) Test 01/22/17 20:51 01/23/17 07:34 Glucose (Fingerstick) 169 mg/dL (70-99) 145 mg/dL (70-99) Laboratory Tests Test 01/22/17 11:14 01/22/17 13:15 01/22/17 16:24 01/22/17 20:51 Glucose (Fingerstick) 127 mg/dL (70-99) 108 mg/dL (70-99) 198 mg/dL (70-99) 169 mg/dL (70-99) Test 01/23/17 07:34 Glucose (Fingerstick) 145 mg/dL (70-99) Medications Current Medications Ondansetron HCl (Zofran) 8 mg PRN Q8HRS PRN IV NAUSEA/VOMITING Last administered on 01/22/17t 08:28; Start 01/22/17 at 01:00 Morphine Sulfate 2 mg PRN Q2HR PRN IV severe pain, 2nd choice; Start 01/22/17 at 01:00 Morphine Sulfate 4 mg PRN Q2HR PRN IV SEVERE PAIN Last administered on 08:27; Start 01/22/17 at 01:00; Stop 01/22/17 at 13:51; Status DC Sodium Chloride 1,000 ml @ 125 mls/hr Q8H IV Last administered on 01/23/17 00 :36; Start 01/22/17 at 01:00 Dextrose (Dextrose 50%-Water Syringe) 12.5 gm PRN Q15MIN PRN IV SEE COMMENTS; Start 01/22/17 at 13:30 Sodium Chloride (Normal Saline Flush) 3 ml QSHIFT PRN IV AFTER MEDS AND BLOOD DRAWS; Start 01/22/17 at 13:30 Tamsulosin HCl (Flomax) 0.4 mg DAILY PO ; Start 01/22/17 at 14:30 Oxycodone HCl (Roxicodone) 2.5 mg PRN Q4HRS PRN PO PAIN RATING 5-7; Start 01/22 at 13:45 Oxycodone HCl (Roxicodone) 5 mg PRN Q4HRS PRN PO PAIN RATING 8-10; Start at 14:00 Insulin Aspart (NovoLOG) 0-7 UNITS TIDWMEALS SQ ; Start 01/22/17 at 17:00 Dextrose (Dextrose 50%-Water Syringe) 12.5 gm PRN Q15MIN PRN IV SEE COMMENTS; Start 01/22/17 at 14:00; Status UNV Prochlorperazine Edisylate (Compazine) 10 mg PRN Q8HRS PRN IV NAUSEA/VOMITING Last administered on 01/22/17 15:18; Start 01/22/17 at 14:30 Active Scripts Active Reported Flomax (Tamsulosin Hcl) 0.4 Mg Cap.er.24h 1 Cap PO DAILY Metformin Hcl 500 Mg Tablet 1 Tab PO BID Vitals/I & O Vital Sign - Last 24 Hours 01/22/17 01/22/17 01/22/17 01/22/17 08:57 11:00 15:00 19:15 Temp 98.2 98.3 98.2 98.3 Pulse 52 60 Resp 19 18 18 B/P (MAP) 141/88 (105) 150/88 (108) Pulse Ox 97 97 96 O2 Delivery Room Air Room Air Room Air Room Air 01/22/17 01/22/17 01/22/17 01/23/17 19:30 20:26 23:00 03:00 Temp 97.7 97.7 98.4 98.5 97.7 97.7 98.4 98.5 Pulse 55 55 56 57 B/P (MAP) 154/73 (100) 154/73 (100) 132/67 (88) 126/77 (93) Pulse Ox 96 96 94 96 O2 Delivery Room Air Room Air Room Air Room Air 01/23/17 07:00 Temp 97.7 97.7 Pulse 52 Resp 20 B/P (MAP) 135/72 (93) Pulse Ox 94 O2 Delivery Room Air Intake and Output 01/22/17 01/22/17 01/23/17 14:59 22:59 06:59 Intake Total 100 ml Output Total 400 ml 1350 ml Balance -300 ml -1350 ml LYLA VALLE MD January 23, 2017 08:50
[2017-01-23] MEDS: TAMSULOSIN 0.4 MG CAP.ER.24H. PO SCH (09:36)
--- NOTE | 2017-01-23 09:54 | PDOC ---
PROGRESS NOTES Chief Complaint Chief Complaint Urolithiasis renal stones, flank pain nausea abd pain, obesity, BMI 38 History of Present Illness History of Present Illness to OR today pain a little better no event Vitals Vitals Vital Signs Date Time Temp Pulse Resp B/P (MAP) Pulse Ox O2 Delivery O2 Flow Rate FiO2 01/23/17 07:00 97.7 52 20 135/72 (93) 94 Room Air 97.7 Physical Exam General: Alert, Oriented X3, Cooperative, No acute distress Heart: Regular rate, No murmurs Lungs: Clear, Other Abdomen: Normal bowel sounds, Soft (obese) Extremities: No clubbing Skin: No rashes Labs LABS Laboratory Tests Test 01/22/17 11:14 01/22/17 13:15 01/22/17 16:24 01/22/17 20:51 Glucose (Fingerstick) 127 mg/dL (70-99) 108 mg/dL (70-99) 198 mg/dL (70-99) 169 mg/dL (70-99) Test 01/23/17 07:34 Glucose (Fingerstick) 145 mg/dL (70-99) Review of Systems Review of Systems no n.v.d Assessment and Plan Assessmemt and Plan uro surg this AM Problems: Comment Review of Relevant I have reviewed the following items pili (where applicable) has been applied. Labs Laboratory Tests Test 01/22/17 07:15 01/22/17 11:14 01/22/17 13:15 01/22/17 16:24 Glucose (Fingerstick) 147 mg/dL (70-99) 127 mg/dL (70-99) 108 mg/dL (70-99) 198 mg/dL (70-99) Test 01/22/17 20:51 01/23/17 07:34 Glucose (Fingerstick) 169 mg/dL (70-99) 145 mg/dL (70-99) Laboratory Tests Test 01/22/17 11:14 01/22/17 13:15 01/22/17 16:24 01/22/17 20:51 Glucose (Fingerstick) 127 mg/dL (70-99) 108 mg/dL (70-99) 198 mg/dL (70-99) 169 mg/dL (70-99) Test 01/23/17 07:34 Glucose (Fingerstick) 145 mg/dL (70-99) Medications Current Medications Ondansetron HCl (Zofran) 8 mg PRN Q8HRS PRN IV NAUSEA/VOMITING Last administered on 01/22/17 08:28; Start 01/22/17 at 01:00 Morphine Sulfate 2 mg PRN Q2HR PRN IV severe pain, 2nd choice; Start 01/22/17 at 01:00 Morphine Sulfate 4 mg PRN Q2HR PRN IV SEVERE PAIN Last administered on 08:27; Start 01/22/17 at 01:00; Stop 01/22/17 at 13:51; Status DC Sodium Chloride 1,000 ml @ 125 mls/hr Q8H IV Last administered on 01/23/17 09 :36; Start 01/22/17 at 01:00 Dextrose (Dextrose 50%-Water Syringe) 12.5 gm PRN Q15MIN PRN IV SEE COMMENTS; Start 01/22/17 at 13:30 Sodium Chloride (Normal Saline Flush) 3 ml QSHIFT PRN IV AFTER MEDS AND BLOOD DRAWS; Start 01/22/17 at 13:30 Tamsulosin HCl (Flomax) 0.4 mg DAILY PO Last administered on 01/23/17 09:36; Start 01/22/17 at 14:30 Oxycodone HCl (Roxicodone) 2.5 mg PRN Q4HRS PRN PO PAIN RATING 5-7; Start 01/22 at 13:45 Oxycodone HCl (Roxicodone) 5 mg PRN Q4HRS PRN PO PAIN RATING 8-10; Start at 14:00 Insulin Aspart (NovoLOG) 0-7 UNITS TIDWMEALS SQ ; Start 01/22/17 at 17:00 Dextrose (Dextrose 50%-Water Syringe) 12.5 gm PRN Q15MIN PRN IV SEE COMMENTS; Start 01/22/17 at 14:00; Status UNV Prochlorperazine Edisylate (Compazine) 10 mg PRN Q8HRS PRN IV NAUSEA/VOMITING Last administered on 01/22/17 15:18; Start 01/22/17 at 14:30 Ceftriaxone Sodium 1 gm/ Sodium Chloride 50 ml @ 100 mls/hr Q24H IV Last administered on 01/23/17 09:35; Start 01/23/17 at 09:00 Active Scripts Active Reported Flomax (Tamsulosin Hcl) 0.4 Mg Cap.er.24h 1 Cap PO DAILY Metformin Hcl 500 Mg Tablet 1 Tab PO BID Vitals/I & O Vital Sign - Last 24 Hours 01/22/17 01/22/17 01/22/17 01/22/17 11:00 15:00 19:15 19:30 Temp 98.2 98.3 97.7 98.2 98.3 97.7 Pulse 52 60 55 Resp 18 18 B/P (MAP) 141/88 (105) 150/88 (108) 154/73 (100) Pulse Ox 97 96 96 O2 Delivery Room Air Room Air Room Air Room Air 01/22/17 01/22/17 01/23/17 01/23/17 20:26 23:00 03:00 07:00 Temp 97.7 98.4 98.5 97.7 97.7 98.4 98.5 97.7 Pulse 55 56 57 52 Resp 20 B/P (MAP) 154/73 (100) 132/67 (88) 126/77 (93) 135/72 (93) Pulse Ox 96 94 96 94 O2 Delivery Room Air Room Air Room Air Room Air Intake and Output 01/22/17 01/22/17 01/23/17 14:59 22:59 06:59 Intake Total 100 ml Output Total 400 ml 1350 ml Balance -300 ml -1350 ml SONDRA BIGGS MD January 23, 2017 09:54
[2017-01-23] MEDS: oxyCODONE IR 5 MG TABLET PO PRN ×3 (10:34→22:41)
[2017-01-23] MEDS ORDERED: IV RINGERS,LACTATED 1000ML 1,000 ML IV SCH (12:04)
[2017-01-23] MEDS ORDERED: fentaNYL PF VIAL 100 MCG/2 ML VIAL IV PRN ×2 (12:15)
[2017-01-23] MEDS ORDERED: LIDOCAINE 1% 1 ML SYRINGE. ID PRN (12:15)
[2017-01-23] MEDS ORDERED: ONDANSETRON PF 4 MG/2 ML VIAL. IV PRN (12:15)
[2017-01-23] MEDS ORDERED: HYDROmorphone 2 MG/ML VIAL IV PRN (12:15)
[2017-01-23] MEDS ORDERED: MORPHINE SULFATE 2 MG/ML DISP.SYRIN. IV PRN (12:15)
[2017-01-23] MEDS ORDERED: PROCHLORPERAZINE 10 MG/2 ML VIAL. IV PRN (12:15)
[2017-01-23] MEDS ORDERED: SUCCINYLCHOLINE 200 MG/10 ML VIAL. ONE (12:52)
[2017-01-23] MEDS ORDERED: fentaNYL PF VIAL 100 MCG/2 ML VIAL ONE ×2 (12:52→14:52)
[2017-01-23] MEDS ORDERED: ONDANSETRON PF 4 MG/2 ML VIAL. ONE (12:52)
[2017-01-23] MEDS ORDERED: DESFLURANE 31 TO 60 MINUTES IH ONE (12:52)
[2017-01-23] MEDS ORDERED: PROPOFOL 20 ML IV ONE ×2 (12:52→14:53)
[2017-01-23] MEDS ORDERED: DEXAMETHASONE SOD PHOS 20 MG/5 ML VIAL. ONE (12:52)
[2017-01-23] MEDS ORDERED: IOHEXOL 300 MG/ML 50 ML VIAL. ONE (13:25)
[2017-01-23] MEDS ORDERED: LIDOCAINE 2% JELLY 6ML IN APPLICATOR. ONE (13:25)
[2017-01-23] MEDS ORDERED: ePHEDrine PF IN SALINE 50 MG/5 ML DISP.SYRIN IV ONE (14:04)
--- NOTE | 2017-01-23 15:11 | PDOC4 ---
Operative Note Operative Note pre-op dx-right ureteral stone procedure-cystoscopy, right retrograde pyelogram, right ureteroscopy with laser lithotripsy and stone extraction and stent placement surgeon-danitza diaz-general Pt. to PACU in stable condition Keep in hospital tonight Follow up Dr. Atkinson next week for cystoscopy and stent removal in office LYLA ATKINSON MD January 23, 2017 15:11
--- NOTE | 2017-01-23 19:56 | OP ---
DATE OF SURGERY: 01/23/2017 OPERATION: Cystoscopy, right retrograde pyelogram, right ureteroscopy with holmium laser lithotripsy and stone removal and right ureteral stent placement. SURGEON: Lyla Atkinson MD ANESTHESIA: General. PREOPERATIVE DIAGNOSIS: Right ureteral stone. POSTOPERATIVE DIAGNOSIS: Right ureteral stone. INDICATIONS: The patient is a very pleasant 66-year-old white male with history of 9 x 5 mm right ureteral stone originally presented with right renal colic and underwent right ureteral stenting as the stone was in the right proximal ureter and the stone had pushed back to the kidney and stone was initially treated with ESWL with no significant break up, however, the stone had been displaced back into the lateral aspect of the kidney and therefore, the stent was removed. The patient had been doing okay until 01/21/2017 when he started having right renal colic again, was seen in the Emergency Room and found to have the stone back in the right proximal ureter. The patient has continued to have pain from the right-sided stone. I have discussed with the patient the options, alternatives, benefits, risks and possible complications of cystoscopy, right retrograde pyelogram, possible ureteroscopy, possible laser lithotripsy and right ureteral stent placement. He understands this and does wish to proceed ahead with operation. DESCRIPTION OF PROCEDURE: After obtaining informed consent, the patient was taken to operating room. After an excellent general anesthetic, the patient was placed in a dorsal lithotomy position. Groin was prepped and draped in sterile fashion. The patient was preloaded with IV antibiotics. Panendoscopy and cystoscopy were then performed with the 30 and 70-degree lens and the 21-Belgian cystoscope sheath. Penile urethra was found to be grossly normal. The patient noted to have a fairly tight stricture in the bulbar urethra; however, the stricture was dilated up with the beak of the cystoscope under direct vision. External sphincter appeared intact. Prostatic urethra showed some moderate bilobar enlargement. Bladder was entered and inspected. Both ureteral orifices were identified and found to be grossly patent. Bladder wall showed some minimal trabeculation, but no bladder tumors or bladder stones were identified. Fluoroscopy showed radiopacity in the area of the right distal ureter consistent with the patient's stone. A right retrograde pyelogram was performed which showed filling defect in the right distal ureter approximately 8 cm above the right ureteral orifice consistent with the patient's stone. Following this, floppy-tipped ZIPwire was then passed up the right ureteral orifice past the stone up the right ureter to the right kidney. Following this, right distal ureter and ureteral orifice were then gently balloon dilated. Balloon dilator was removed leaving the ZIPwire in place as a safety wire. Bladder was then drained, cystoscope withdrawn from the patient. Following this, the thin rigid ureteroscope was then passed per urethra up alongside the ZIPwire up the right ureteral orifice up the right ureter to the level of the stone. Stone was found to be brownish in color and measuring approximately 9 x 5 mm. The stone was then treated with holmium laser fiber at a setting of 0.5 and 10 and was fragmented in approximately 3 mm fragments, which were then removed from the patient using the 0 tip nitinol basket under direct vision and the stone fragments were sent for stone analysis. All the significant stone fragments were removed from the right ureter, ureter appeared completely intact at the end of the procedure. Retrograde pyelogram showed no other filling defects in the right collecting system and the right side collecting system to be intact. Following this, the ureteroscope was withdrawn from the patient, the cystoscope then replaced and then following this, a 6 x 26 double-J stent was then passed up the ZIPwire, placing one curl in the right kidney and the other curl in the bladder and the ZIPwire removed. Stent position was checked by fluoroscopy and direct vision, found to be in good position. The patient noted to have just some small amount of oozing from mucosal blood vessels at the bladder neck at the 6 o'clock position, which was lightly fulgurated with the Bugbee electrode under direct vision. Hemostasis was checked and found to be excellent. Bladder was completely intact at the end of procedure and following this, bladder was then drained and the cystoscope withdrawn from the patient. The patient tolerated the procedure very well, was taken to recovery room in stable condition. We will plan on seeing the patient back in Urology office in 1 week for cystoscopy and stent removal and the patient will also need follow up on his bulbar urethral stricture in the future. LYLA ATKINSON MD DR: SANGEETA/alis JOB#: [id number] / [id number]
--- NOTE | 2017-01-24 00:29 | CONS ---
DATE OF CONSULTATION: 01/23/2017 LOCATION: The patient is in room 404. HISTORY OF PRESENT ILLNESS: The patient is a very pleasant 66-year-old white male with history of a right-sided stone. The patient originally had presented last month with a 9 x 5 mm right proximal ureteral stone with obstruction. He had undergone cystoscopy, retrograde pyelogram and right ureteral stenting followed by right-sided ESWL. The stone had pushed back to the right kidney and was treated; however, it did not appear to have had any significant effect on the stone. However, due to its peripheral location in the kidney, the stent was removed and patient had been doing well until 01/21/2017, when he began having right-sided flank and abdominal pain again. The patient had repeat scan, it appeared that the stone had moved from the right kidney down into the right proximal ureter again obstructing . The patient is now in the hospital for further treatment. PAST MEDICAL HISTORY: Significant for diabetes, hypertension. PAST SURGICAL HISTORY: The patient has had prior shoulder surgery and back surgery. MEDICATIONS: The patient is on medication for his blood sugars. REVIEW OF SYSTEMS: The patient with some mild right-sided flank and abdominal pain. Currently, he is afebrile, vital signs are stable. Glucose fingerstick is 145. PHYSICAL EXAMINATION: GENERAL: Well-developed, well-nourished white male in just minimal discomfort. ABDOMEN: The patient with some mild tenderness in the right flank and right abdomen. No left-sided flank or abdominal tenderness. PLAN: I discussed with the patient his current stone, which does appear to be in the 9 x 5 mm range, in the right proximal ureter with obstruction with some right perirenal stranding and inflammation. I discussed with the patient the options, alternatives, benefits, risks and possible complications of observation versus intervention surgically with cystoscopy, right retrograde pyelogram, possible ureteroscopy, possible laser lithotripsy and possible right ureteral stent placement. He understands this and does wish to proceed with operation. We will therefore proceed accordingly today. I certainly appreciate being allowed to participate in this patient's care. LYLA VALLE MD DR: SANGEETA/alis JOB#: [id number] / [id number]
[2017-01-24] MEDS: IV NORMAL SALINE 1000ML BAG 1,000 ML IV SCH ×2 (01:00→07:00)
[2017-01-24 03:39] VITALS: BP 114/65
[2017-01-24 07:00] VITALS: BP 134/72
[2017-01-24] MEDS: TAMSULOSIN 0.4 MG CAP.ER.24H. PO SCH (08:27)
[2017-01-24] MEDS: INSULIN ASPART 300 UNITS/3 ML INSULN.PEN SQ SCH ×2 (08:34→12:00)
--- NOTE | 2017-01-24 10:24 | PDOC ---
PROGRESS NOTES Subjective Subjective Pt. feeling ok Objective Objective Vital Signs Date Time Temp Pulse Resp B/P (MAP) Pulse Ox O2 Delivery O2 Flow Rate FiO2 01/24/17 07:00 97.6 53 18 134/72 (92) 96 Room Air 97.6 01/23/17 15:06 8 Intake and Output 01/24/17 07:00 Intake Total 1640 ml Output Total 1325 ml Balance 315 ml Intake Oral 540 ml IV Total 1100 ml Output Urine Total 1325 ml # Voids 3 Physical Exam Physical Exam minimal stent discomfort Plan Plan of Care Follow up next week for cysto and stent removal in office Comment Review of Relevant I have reviewed the following items pili (where applicable) has been applied. Labs Laboratory Tests Test 01/22/17 11:14 01/22/17 13:15 01/22/17 16:24 01/22/17 20:51 Glucose (Fingerstick) 127 mg/dL (70-99) 108 mg/dL (70-99) 198 mg/dL (70-99) 169 mg/dL (70-99) Test 01/23/17 07:34 01/23/17 11:58 01/23/17 17:14 01/23/17 20:31 Glucose (Fingerstick) 145 mg/dL (70-99) 127 mg/dL (70-99) 193 mg/dL (70-99) 278 mg/dL (70-99) Test 01/24/17 07:23 Glucose (Fingerstick) 175 mg/dL (70-99) Laboratory Tests Test 01/23/17 11:58 01/23/17 17:14 01/23/17 20:31 01/24/17 07:23 Glucose (Fingerstick) 127 mg/dL (70-99) 193 mg/dL (70-99) 278 mg/dL (70-99) 175 mg/dL (70-99) Medications Current Medications Ondansetron HCl (Zofran) 8 mg PRN Q8HRS PRN IV NAUSEA/VOMITING Last administered on 01/22/17 08:28; Start 01/22/17 at 01:00 Morphine Sulfate 2 mg PRN Q2HR PRN IV severe pain, 2nd choice Last administered on 01/24/17 01:01; Start 01/22/17 at 01:00 Morphine Sulfate 4 mg PRN Q2HR PRN IV SEVERE PAIN Last administered on 08:27; Start 01/22/17 at 01:00; Stop 01/22/17 at 13:51; Status DC Sodium Chloride 1,000 ml @ 125 mls/hr Q8H IV Last administered on 01/24/17 07 :00; Start 01/22/17 at 01:00 Dextrose (Dextrose 50%-Water Syringe) 12.5 gm PRN Q15MIN PRN IV SEE COMMENTS; Start 01/22/17 at 13:30 Sodium Chloride (Normal Saline Flush) 3 ml QSHIFT PRN IV AFTER MEDS AND BLOOD DRAWS; Start 01/22/17 at 13:30 Tamsulosin HCl (Flomax) 0.4 mg DAILY PO Last administered on 01/24/17 08:27; Start 01/22/17 at 14:30 Oxycodone HCl (Roxicodone) 2.5 mg PRN Q4HRS PRN PO PAIN RATING 5-7; Start 01/22 at 13:45 Oxycodone HCl (Roxicodone) 5 mg PRN Q4HRS PRN PO PAIN RATING 8-10 Last administered on 01/23/17 22:41; Start 01/22/17 at 14:00 Insulin Aspart (NovoLOG) 0-7 UNITS TIDWMEALS SQ Last administered on 01/24/17 08:34; Start 01/22/17 at 17:00 Dextrose (Dextrose 50%-Water Syringe) 12.5 gm PRN Q15MIN PRN IV SEE COMMENTS; Start 01/22/17 at 14:00; Status UNV Prochlorperazine Edisylate (Compazine) 10 mg PRN Q8HRS PRN IV NAUSEA/VOMITING Last administered on 01/22/17 15:18; Start 01/22/17 at 14:30 Ceftriaxone Sodium 1 gm/ Sodium Chloride 50 ml @ 100 mls/hr Q24H IV Last administered on 01/24/17 08:27; Start 01/23/17 at 09:00 Ondansetron HCl (Zofran) 4 mg PRN Q6HRS PRN IV NAUSEA/VOMITING; Start 01/23/17 at 12:15; Stop 01/24/17 at 12:14 Fentanyl Citrate (Fentanyl 2ml Vial) 25 mcg PRN Q5MIN PRN IV MILD PAIN; Start 01/23/17 at 12:15; Stop 01/24/17 at 12:14 Fentanyl Citrate (Fentanyl 2ml Vial) 50 mcg PRN Q5MIN PRN IV MODERATE PAIN Last administered on 01/23/17t 15:35; Start 01/23/17 at 12:15; Stop 01/24/17 at 12:14 Morphine Sulfate 1 mg PRN Q10MIN PRN IV SEVERE PAIN; Start 01/23/17 at 12:15; Stop 01/24/17 at 12:14 Ringer's Solution 1,000 ml @ 0 mls/hr Q0M IV ; Start 01/23/17 at 12:04; Stop at 00:03; Status DC Lidocaine HCl 2 ml PRN 1X PRN ID PRIOR TO IV START; Start 01/23/17 at 12:15; Stop 01/24/17 at 12:14 Hydromorphone HCl (Dilaudid) 0.5 mg PRN Q10MIN PRN IV SEV PAIN, Second choice; Start 01/23/17 at 12:15; Stop 01/24/17 at 12:14 Prochlorperazine Edisylate (Compazine) 5 mg PACU PRN PRN IV NAUSEA, MRX1; Start 01/23/17 at 12:15; Stop 01/24/17 at 12:14 Dexamethasone Sodium Phosphate (Decadron) 20 mg STK-MED ONCE .ROUTE ; Start at 12:52; Stop 01/23/17 at 12:53; Status DC Ondansetron HCl (Zofran) 4 mg STK-MED ONCE .ROUTE ; Start 01/23/17 at 12:52; Stop 01/23/17 at 12:53; Status DC Propofol 20 ml @ As Directed STK-MED ONCE IV ; Start 01/23/17 at 12:52; Stop at 12:53; Status DC Desflurane (Suprane) 30 ml STK-MED ONCE IH ; Start 01/23/17 at 12:52; Stop 01/23 at 12:53; Status DC Fentanyl Citrate (Fentanyl 2ml Vial) 100 mcg STK-MED ONCE .ROUTE ; Start at 12:52; Stop 01/23/17 at 12:53; Status DC Succinylcholine Chloride (Anectine) 200 mg STK-MED ONCE .ROUTE ; Start 01/23/17 at 12:52; Stop 01/23/17 at 12:53; Status DC Lidocaine HCl (Glydo (Lidocaine) Jelly) 6 judy STK-MED ONCE .ROUTE ; Start at 13:25; Stop 01/23/17 at 13:26; Status DC Iohexol (Omnipaque 300 Mg/ml) 50 ml STK-MED ONCE .ROUTE Last administered on t 14:32; Start 01/23/17 at 13:25; Stop 01/23/17 at 13:26; Status DC Ephedrine Sulfate 50 mg STK-MED ONCE IV ; Start 01/23/17 at 14:04; Stop at 14:05; Status DC Fentanyl Citrate (Fentanyl 2ml Vial) 100 mcg STK-MED ONCE .ROUTE ; Start at 14:52; Stop 01/23/17 at 14:53; Status DC Propofol 20 ml @ As Directed STK-MED ONCE IV ; Start 01/23/17 at 14:53; Stop at 14:54; Status DC Active Scripts Active Reported Flomax (Tamsulosin Hcl) 0.4 Mg Cap.er.24h 1 Cap PO DAILY Metformin Hcl 500 Mg Tablet 1 Tab PO BID Vitals/I & O Vital Sign - Last 24 Hours 01/23/17 01/23/17 01/23/17 01/23/17 11:00 12:53 15:06 15:06 Temp 98.1 98.4 98.0 98.1 98.4 98.0 Pulse 59 55 98 Resp 20 15 16 B/P (MAP) 172/90 (117) 179/84 143/64 Pulse Ox 90 97 98 O2 Delivery Room Air Room Air Simple Mask Mask O2 Flow Rate 8 8 01/23/17 01/23/17 01/23/17 01/23/17 15:21 15:35 15:35 15:50 Pulse 96 87 77 Resp 20 24 14 20 B/P (MAP) 142/52 150/70 132/67 Pulse Ox 92 94 93 92 O2 Delivery Room Air Room Air Room Air Room Air 01/23/17 01/23/17 01/23/17 01/23/17 16:22 16:29 18:26 19:26 Temp 97.1 97.5 97.5 98.0 97.1 97.5 97.5 98.0 Pulse 67 81 89 89 Resp 20 20 20 18 B/P (MAP) 163/77 (105) 146/76 (99) 122/98 (106) 133/56 (81) Pulse Ox 96 95 94 94 O2 Delivery Room Air Room Air Room Air Room Air 01/23/17 01/23/17 01/23/17 01/23/17 20:00 22:34 22:41 23:40 Temp 98.3 98.3 Pulse 88 Resp 18 16 17 B/P (MAP) 124/70 (88) Pulse Ox 95 O2 Delivery Mask Room Air Room Air 01/24/17 01/24/17 01/24/17 01/24/17 01:01 01:30 03:39 07:00 Temp 98.5 97.6 98.5 97.6 Pulse 60 53 Resp 18 19 18 18 B/P (MAP) 114/65 (81) 134/72 (92) Pulse Ox 95 96 O2 Delivery Room Air Room Air Room Air Room Air Intake and Output 01/23/17 01/23/17 01/24/17 15:00 23:00 07:00 Intake Total 1100 ml 540 ml Output Total 1325 ml Balance 1100 ml -785 ml LYLA VALLE MD January 24, 2017 10:23
[2017-01-24 11:00] VITALS: BP 123/67
--- NOTE | 2017-01-25 21:19 | DS ---
DATE OF DISCHARGE: 01/24/2017 CHIEF COMPLAINT: Urolithiasis. HOSPITAL COURSE: The patient is a 66-year-old gentleman who was transferred from [facility] with a stone in his right ureter by CT with accompanying symptoms. He was admitted here, seen by Dr. Atkinsno and stent was placed in his ureter. Pain resolved and the patient was discharged to home with close followup with Dr. Atkinson. PHYSICAL EXAMINATION: VITAL SIGNS: Show a blood pressure of 123/67, heart rate of 54, respiratory rate at 18. He is afebrile. GENERAL: This is a morbidly obese 66-year-old gentleman, alert and oriented, in no acute distress. LUNGS: Clear. HEART: Regular rate and rhythm. ABDOMEN: Positive bowel sounds, soft, nontender; flank without any pain to percussion. EXTREMITIES: Show no edema. DISCHARGE DIAGNOSIS: Urolithiasis on the right status post ureteral stent placement. DISCHARGE DISPOSITION: To home. DISCHARGE CONDITION: Improved. DISCHARGE MEDICATIONS: Please refer to MAR. DISCHARGE INSTRUCTIONS: The patient will follow up with his PCP, Dr. Romain Gray as well as Dr. Atkinson as previously arranged. BONNIE MARION MD DR: UR/nts JOB#: [id number] / [id number] ROMAIN Fraire MD MTDD
[2017-02-01 08:28] LABS: CA OXALATE MONOHYDR 97 % (.); COLOR Brown (.)
== END 2017-01-24 14:44 | disposition home or self-care (01) | DRG 670 ==
LOC: 4 NORTH 00:03
PROVIDERS: ADMIT Internal Medicine Hematology & Oncology; ATTEND Internal Medicine Hematology & Oncology
PROC: BT1D1ZZ Fluoroscopy of Right Kidney, Ureter and Bladder using Low Osmolar Contrast (ICD-10-PCS; 2017-01-23)
PROC: 0T768DZ Dilation of Right Ureter with Intraluminal Device, Via Natural or Artificial Opening Endoscopic (ICD-10-PCS; 2017-01-23)
PROC: 0TC68ZZ Extirpation of Matter from Right Ureter, Via Natural or Artificial Opening Endoscopic (ICD-10-PCS; principal; 2017-01-23 14:00)
DX: N20.2 Calculus of kidney with calculus of ureter (principal); E11.9 Type 2 diabetes mellitus without complications; E66.9 Obesity, unspecified; I10 Essential (primary) hypertension; Z68.38 Body mass index [BMI] 38.0-38.9, adult
CPT/HCPCS: 74420; 82365; 82962; C1769; C2617; J0330; J0696; J0780; J1100; J1815; J2270; J2405; J2704; J3010; J7030; Q9967

== ENCOUNTER → 2018-11-05 | Outpatient (CLI) | payer MEDICARE, OTHER ==
[~2018-11-05] MED LIST changes: +ASPI325T11 PO; +CEFD300C PO; +ENAL20TA4 PO; +ENOX40DI3 SQ; +FINA5TAB4 PO; +HYDR-3164 PO; +KETO15CR2 TP; +MELO15TA23 PO; +METF500T16 PO; -METF500T4 PO; +OXYC1TAB15 PO; +TAMS0.4C97 PO; +TRIA15CR2 TP
[2018-11-05 09:09] LABS: BASO # 0.1 x10^3/uL (0.0-0.2); BASO % 1 % (0-3); EOS # 0.3 x10^3/uL (0.0-0.7); EOS % 6 % (0-3); HEMATOCRIT 45.6 % (39.0-53.0); HEMOGLOBIN 15.3 g/dL (13.0-17.5); LYMPH # 2.3 x10^3/uL (1.0-4.8); LYMPH % 39 % (24-48); MEAN CORPUSCULAR HEMOGLOBIN 30 pg (25-35); MEAN CORPUSCULAR HGB CONC 34 g/dL (31-37); MEAN CORPUSCULAR VOLUME 90 fL (79-100); MONO # 0.5 x10^3/uL (0.0-1.1); MONO % 9 % (0-9); NEUT # 2.8 x10^3uL (1.8-7.7); NEUT % 46 % (31-73); PLATELET COUNT 225 x10^3/uL (140-400); RED BLOOD COUNT 5.07 x10^6/uL (4.30-5.70); RED CELL DISTRIBUTION WIDTH 13.8 % (11.5-14.5); WHITE BLOOD COUNT 6.1 x10^3/uL (4.0-11.0)
[2018-11-05 09:29] LABS: PROTHROMBIN TIME PATIENT 13.9 SEC (11.7-14.0)
[2018-11-05 09:31] LABS: ALBUMIN 3.7 g/dL (3.4-5.0); CALCIUM 8.8 mg/dL (8.5-10.1); CREATININE 0.9 mg/dL (0.7-1.3); GFR 84.4; POTASSIUM 4.2 mmol/L (3.5-5.1)
[2018-11-05 12:52] LABS: BILIRUBIN,URINE NEGATIVE (NEG); CLARITY,URINE CLEAR; COLOR,URINE YELLOW; NITRITE,URINE NEGATIVE (NEG); PH,URINE 5.5; PROTEIN,URINE NEGATIVE (NEG-TRACE); UROBILINOGEN,URINE 0.2 mg/dL (0.2 mg/dL)
--- NOTE | 2018-11-05 12:58 | EKG ---
[facility] [address] [place] [address] Test Date: 2018-11-05 Test Time: 12:41:47 Pat Name: CHETNA SENIOR Department: Room: Gender: M Crew Dispatcher: NORRIS : 1950 Requested By: NICKY MEYER Order Number: [id number] Reading MD: Brendan Harris MD Measurements Intervals [place] Rate: 71 P: 42 IN: 116 QRS: 4 QRSD: 90 T: 39 QT: 390 QTc: 424 Interpretive Statements SINUS RHYTHM LAE Electronically Signed On 11-08-2018 9:28:37 [employer] BASKET [employer] by Brendan Harris MD
[2018-11-05 13:09] LABS: BACTERIA,URINE 0 /HPF (0-FEW); RBC,URINE OCC /HPF (0-2); SQUAMOUS EPITHELIAL CELL,UR MOD /LPF
--- NOTE | 2018-11-05 13:53 | RAD ---
EXAM: Chest, 2 views. HISTORY: Preoperative evaluation. Hypertension. COMPARISON: None. FINDINGS: 2 views of the chest are obtained. There is no infiltrate, pleural effusion or pneumothorax. The heart is normal in size. There is a calcified granuloma within the right mid thorax. IMPRESSION: No acute pulmonary finding. Electronically signed by: Leidy Rea MD (11/05/2018 1:49 PM) [place] [id number]
[2018-11-05 22:09] LABS: HEMOGLOBIN A1C 6.2 % (4.8-5.6)
== END | disposition home or self-care (01) ==
LOC: SURGPAT 12:53
PROVIDERS: ATTEND Orthopaedic Surgery
DX: M17.11 Unilateral primary osteoarthritis, right knee (principal); I10 Essential (primary) hypertension
CPT/HCPCS: 36415; 71046; 80048; 81001; 82040; 82306; 83036; 85025; 85610; 85651; 85730; 87641; 93005

== ENCOUNTER 2018-11-27 06:39 | Inpatient (IN) | payer MEDICARE, OTHER ==
--- NOTE | 2018-11-26 19:53 | PDOC1 ---
History and Physical Date of Admission Date of Admission 11/27/18 Identification/Chief Complaint Chief Complaint Right knee osteoarthritis pain Source Source: Chart review History of Present Illness History of Present Illness 67-year-old man with bilateral knee pain, right greater than left. Previously he was followed by Dr. Torres who felt he was getting close to needing knee replacement surgery. 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 He has arthritis in multiple joints, for which he is on meloxicam. The Meloxicam helps his thumb CMC joints bilaterally but doesn't really help the knees. He's been living with a friend although the friend is moving. His knee occasionally causes him to fall down. The knee locks. Sometimes it feels like it stops him in his tracks. He can't sleep at night due to the knee throbbing. For enjoyment he likes riding motorcycles. He had back surgery about 20 years ago. He has a history of a rotator cuff repair of the left shoulder. He has a blood pressure medicine, and type 2 diabetes for which he is on metformin. His primary care provider is Kenny OCONNOR under Dr. Luciano Perez. Past Medical History Renal/: Other (prostate issues) Past Surgical History Past Surgical History Lumbar surgery, rotator cuff repair, right knee surgery, tendon repair left leg , tumor removal neck, cyst removal right hand, shoulder surgery 2002 Family History Family History Prostate cancer Family History: Cancer Social History Smoke: No ALCOHOL: occassional Current Medications Current Medications Current Medications Morphine Sulfate 5 mg/Ketorolac Tromethamine 30 mg/Ropivacaine 60 ml/ Epinephrine HCl 0.5 mg/Sodium Chloride 100 ml @ 100 mls/hr 1X ONCE INT ART ; Start 11/27/18 at 06:00; Stop 11/27/18 at 06:59 Meloxicam (Mobic) 15 mg 1X PREOP PRN PO PRIOR TO PROCEDURE; Start 11/27/18 at 06:00; Stop 11/27/18 at 18:00 Acetaminophen/ Hydrocodone Bitart (Lortab 7.5/325) 2 tab 1X PREOP PRN PO PRIOR TO PROCEDURE; Start 11/27/18 at 06:00; Stop 11/27/18 at 18:00 Tranexamic Acid 1000 mg/Sodium Chloride 60 ml @ 60 mls/hr 1X PERIOP ONCE INJ ; Start 11/27/18 at 06:00; Stop 11/27/18 at 06:59 Tranexamic Acid 1000 mg/Sodium Chloride 60 ml @ 60 mls/hr 1X PERIOP ONCE INJ ; Start 11/27/18 at 08:00; Stop 11/27/18 at 08:59 Cefazolin Sodium 3 gm/Dextrose 100 ml @ 200 mls/hr 1X PREOP PRN IV PRIOR TO PROCEDURE; Start 11/27/18 at 06:00; Stop 11/27/18 at 15:00 Ondansetron HCl (Zofran) 4 mg PRN Q6HRS PRN IV NAUSEA/VOMITING; Start 11/27/18 at 07:00; Stop 11/27/18 at 20:00 Fentanyl Citrate (Fentanyl 2ml Vial) 25 mcg PRN Q5MIN PRN IV MILD PAIN; Start 11/27/18 at 07:00; Stop 11/27/18 at 20:00 Fentanyl Citrate (Fentanyl 2ml Vial) 50 mcg PRN Q5MIN PRN IV MODERATE TO SEVERE PAIN; Start 11/27/18 at 07:00; Stop 11/27/18 at 20:00 Morphine Sulfate (Morphine Sulfate) 1 mg PRN Q10MIN PRN IV SEVERE PAIN; Start 11/27/18 at 07:00; Stop 11/27/18 at 20:00 Ringer's Solution 1,000 ml @ 30 mls/hr Q24H IV ; Start 11/27/18 at 07:00; Stop 11/27/18 at 18:59 Lidocaine HCl (Xylocaine-Mpf 1% 2ml Vial) 2 ml PRN 1X PRN ID PRIOR TO IV START ; Start 11/27/18 at 07:00; Stop 11/27/18 at 20:00 Hydromorphone HCl (Dilaudid) 0.5 mg PRN Q10MIN PRN IV SEV PAIN, Second choice; Start 11/27/18 at 07:00; Stop 11/27/18 at 20:00 Prochlorperazine Edisylate (Compazine) 5 mg PACU PRN PRN IV NAUSEA, MRX1; Start 11/27/18 at 07:00; Stop 11/27/18 at 20:00 Active Scripts Active Reported Ketoconazole 15 Gm Cream..g. 15 Gm TP BID Triamcinolone Acetonide 0.025% Cream (Triamcinolone Acetonide) 15 Gm Cream..g. 1 Ronn TP PRN DAILY PRN Meloxicam 15 Mg Tablet 15 Mg PO DAILY Vasotec (Enalapril Maleate) 20 Mg Tablet 10 Mg PO DAILY Finasteride 5 Mg Tablet 5 Mg PO HS Flomax (Tamsulosin Hcl) 0.4 Mg Cap.er.24h 1 Cap PO HS Metformin Hcl 500 Mg Tablet 1,000 Mg PO BID Allergies Allergies: Coded Allergies: No Known Drug Allergies (Unverified , 01/23/17) ROS General: No: Chills, Night Sweats Eyes: No Double vision HEENT: No: Heacaches Hematological and Lymphatic: No: Bleeding Problems, Blood Clots Respiratory: No: Cough, Pleuritic Pain, Shortness of breath Cardiovascular: No Chest Pain, No Palpitations Gastrointestinal: No Nausea, No Vomiting, No Diarrhea Genitourinary: No Dysuria, No Hematuria Musculoskeletal: Yes Joint Pain Neurological: No Behavorial Changes, No Bowel/Bladder ControlChng, No Confusion , No Dizziness Physical Exam General: Alert, Cooperative HEENT: Atraumatic Lungs: Normal air movement Heart: RRR Abdomen: Soft Extremities: Other (RIGHT knee shows a mildly antalgic gait. There is varus alignment. No masses. No detectable effusion. Tenderness on the joint lines. Range of motion is 3-115 degrees. There is crepitus with range of motion, and pain at the extremes of motion. The knee is stable to varus and valgus stress without subluxation or laxity. Muscle strength is 5/5 for the quadriceps. The hamstring strength is 5/5. The skin is normal with no scars, rashes, lesions or ulcers. Light touch sensation is intact. No edema and no varicosities. Dorsalis pedis pulse is intact and capillary refill is normal) Skin: No rashes, No breakdown, No significant lesion Neuro: Normal speech, Normal tone, Sensation intact Images Images Report reviewed, images independently reviewed. The right knee has varus alignment and medial joint space narrowing with osteophytes. The 10/22/18 weightbearing film shows medial [id number] contact of the right knee. The radiologist mentions valgus malalignment "genu valgum" of the left knee, but I only see varus alignment of the right knee and normal alignment of the left knee. [address] [id number] IMAGING REPORT Signed PATIENT: CHETNA SENIOR ACCOUNT: [id number] : 1950 LOCATION: [facility] AGE: 67 SEX: M EXAM STATUS: REG CLI ORD. PHYSICIAN: NICKY MEYER MD REASON: Pain in right knee PROCEDURE: KNEE RIGHT 2V EXAM: Bilateral knees, standing view; right knee, 2 views. HISTORY: Pain. COMPARISON: None. FINDINGS: A frontal standing view both knees and lateral and sunrise views of the right knee are obtained. There is medial compartment joint space narrowing, subchondral sclerosis and spurring involving the right knee. There is also minimal right patellar spurring. There is suspected slight left genu valgus. There is no right knee effusion. IMPRESSION: 1. Mild medial and minimal patellofemoral compartment osteoarthritis of the right knee. 2. Suspected slight left genu valgus. Electronically signed by: Carlos Gustafson MD (10/23/2018 8:25 AM) [id number] DICTATED AND SIGNED BY: CARLOS GUSTAFSON MD DATE: 10/23/18822 CC: NICKY MEYER MD; SYDNIE BAUGH MD. VTE Prophylaxis Ordered VTE Prophylaxis Devices: Yes VTE Pharmacological Prophylaxi: Yes Assessment/Plan Assessment/Plan He has significant right knee osteoarthritis. He tried nonoperative treatment such as meloxicam. The knee gives out, and interferes with sleeping, and causes difficulty with activity. He would otherwise be more active. We discussed the potential for additional nonoperative treatment such as bracing or injections. He does have a varus knee and [id number] contact medially, and I discussed with him that arthroscopic surgery is not going to be helpful in this situation. He is at an appropriate age to consider knee replacement surgery. I recommended a right total knee arthroplasty, but offered him other nonoperative treatment if he desires. He would like to proceed with right total knee replacement. We discussed the potential risks of infection, neurovascular injury , bleeding, blood clots, need for revision surgery, or other potential surgical or anesthetic complications. He is here for elective right total knee arthroplasty. NICKY MEYER MD Nov 26, 2018:53
[2018-11-27] VITALS (7 sets, daily range): BP systolic 120–134; BP diastolic 59–76
[~2018-11-27] VITALS: Ht 175.3 cm; Wt 117.5 kg
[~2018-11-27 06:39] MED LIST changes: -ASPI325T11 PO; -ENOX40DI3 SQ; +HYDROcodone/APAP 7.5/325MG 1 TAB TABLET PO PRN; +MELOXICAM 7.5 MG TABLET PO PRN; +MORPHINE SULFATE 5 MG, KETOROLAC 30MG VIAL 30 MG, ROPIVacaine 0.5% PF 60 ML, EPINEPHrin... INT ART ONE; -OXYC1TAB15 PO; +TRANEXAMIC ACID 1,000 MG in IV NS 50ML -- 1ST BAG INJ ONE; +ceFAZolin SODIUM 3 GM in IV DEXTROSE 5% 100ML 100 ML IV PRN
[2018-11-27] MEDS ORDERED: IV RINGERS,LACTATED 1000ML 1,000 ML IV SCH (07:00)
[2018-11-27] MEDS ORDERED: LIDOCAINE 1% PF 2 ML VIAL. ID PRN (07:00)
[2018-11-27] MEDS ORDERED: MORPHINE SULFATE 2 MG/ML VIAL. IV PRN (07:00)
[2018-11-27] MEDS ORDERED: PROCHLORPERAZINE 10 MG/2 ML VIAL. IV PRN (07:00)
[2018-11-27] MEDS ORDERED: fentaNYL PF VIAL 100 MCG/2 ML VIAL IV PRN ×2 (07:00→11:30)
[2018-11-27] MEDS ORDERED: ONDANSETRON PF 4 MG/2 ML VIAL. IV PRN (07:00)
[2018-11-27] MEDS ORDERED: HYDROmorphone 2 MG/ML VIAL IV PRN (07:00)
[2018-11-27] MEDS ORDERED: TRANEXAMIC ACID 1,000 MG in IV NS 50ML -- 2ND BAG INJ ONE (08:00)
[2018-11-27] MEDS ORDERED: SEVOFLURANE > 120 MINUTES. IH ONE (08:25)
[2018-11-27] MEDS ORDERED: PROPOFOL 20 ML IV ONE ×2 (08:26→09:57)
[2018-11-27] MEDS ORDERED: LIDOCAINE 2% PF 5 ML VIAL. ONE (08:26)
[2018-11-27] MEDS ORDERED: FAMOTIDINE 20 MG/2 ML VIAL ONE (08:26)
[2018-11-27] MEDS ORDERED: ONDANSETRON PF 4 MG/2 ML VIAL. ONE (08:26)
[2018-11-27] MEDS ORDERED: DEXAMETHASONE SOD PHOS 20 MG/5 ML VIAL. ONE (08:26)
[2018-11-27] MEDS ORDERED: TOBRAMYCIN POWDER 1.2 GM VIAL. ONE (08:27)
[2018-11-27] MEDS ORDERED: VANCOMYCIN 1 GM VIAL. ONE (08:27)
[2018-11-27] MEDS ORDERED: SCOPOLAMINE 1.5MG PATCH. TD ONE (09:15)
[2018-11-27] MEDS ORDERED: GLYCOPYRROLATE 1 MG/5 ML VIAL. ONE (09:37)
[2018-11-27] MEDS ORDERED: fentaNYL PF VIAL 100 MCG/2 ML VIAL ONE ×2 (09:57→11:52)
[2018-11-27] MEDS ORDERED: KETOROLAC 30 MG/ML INJ FOR OR. INJ ONE (09:57)
[2018-11-27] MEDS ORDERED: ePHEDrine PF IN SALINE 50 MG/10 ML SYRINGE. IV ONE (10:03)
[2018-11-27] MEDS ORDERED: LABETALOL 20 MG/4 ML DISP.SYRIN. IVP ONE (10:45)
--- NOTE | 2018-11-27 11:26 | PDOC4 ---
Operative Note Operative Note Date of Procedure: November 27, 2018 Pre-Op Diagnosis: Unilateral primary osteoarthritis, right knee. M17.11 Post-Op Diagnosis: same Procedure: right total knee arthroplasty with patella resurfacing, CPT 71889 Surgeon: Nicky Knowles MD Wic Site Coordinator: TAMMIE Mcqueen (Annie) Anesthesia: General EBL: 100 mL Specimens Obtained: right knee bone and soft tissue Complications: none Implant Company: [employer] Drains: hemovac plus pain catheter Tourniquet time: 54 Minutes Tourniquet Pressure: 350 mm Hg Indications for Procedure: Arthritis pain unrelieved by nonoperative management. Findings: Severe osteoarthritis with bone on bone contact medially. Areas of full thickness cartilage loss on the lateral femoral condyle. Implants used: Size 5 right bicruciate stabilized Journey II BCS Oxinium femoral component, size 5 right Journey nonporous tibial baseplate, size 5-6 10 mm right Journey II BCS XLPE articular insert, 32 mm oval Malia II resurfacing patellar component Procedure in Detail: The patient was identified in the preoperative holding area, and the correct right lower extremity was marked by me. The patient was taken to the operating room where the patient was anesthetized by the Department of Anesthesia. Preoperative antibiotics were given intravenously. Tranexamic acid 1 g was given intravenously for intraoperative hemostasis. A "time-out" procedure was performed. The patient was positioned supine on the operative table with a tourniquet on the upper right thigh. The right lower limb was thoroughly scrubbed, then sterile surgical prep solution was applied, and the limb was draped in sterile fashion. An impervious stockinet and adhesive drape were used such that the skin was entirely covered. An Banks leg horowitz was used. The operating team wore personal exhaust-ventilated hoods. The limb exsanguinated with an Esmarch bandage, and the tourniquet was inflated. A midline skin incision was made with a scalpel using the patella and tibial tubercle as landmarks. Electrocautery was used for hemostasis. My field administrative assistant used rake retractors. A medial parapatellar arthrotomy incision was used with extension into the distal quadriceps tendon. The patella was retracted laterally and Hohmann retractors were now used by my field administrative assistant. Excess synovium, the menisci, and the cruciate ligaments were resected sharply. The patella was assessed and excess synovium and osteophytes around the patellar articulation were removed. The patella was measured with a caliper, cut freehand with a saw using caliper measurements, sized, and then drilled for an oval three-pegged patella component. A periarticular multimodal ropivacaine anesthetic injection was used in the suprapatellar pouch and distal quadriceps muscle. Whitesides's line and the transepicondylar axis were marked on the femur. An intra-medullary 5 degree cutting guide was pinned to the femur, and a distal femoral cut was made with an oscillating saw. An additional 2 mm resection was used due to the deep femoral sulcus, and deficient condyle. My field administrative assistant held Hohmann retractors and an [facility] retractor to protect the medial and lateral collateral ligaments, the patellar tendon, the skin and the other soft tissues. A posterior referencing guide was applied with external rotation of 3 to match Whitesides line. A 5-in-1 Journey II cutting guide was then applied and pinned to the femur. The posterior, anterior, and all chamfer cuts were made with the oscillating saw. An extramedullary guide was pinned to the tibia and rotational alignment and the planned resection thickness assessed. An external alignment te was used to verify the planned cut in the varus-valgus plane and regarding posterior slope referencing the tibial tubercle, the tibial shaft, the ankle joint, and the second metatarsal. The upper tibia was cut made with an oscillating saw. My field administrative assistant held Hohmann retractors and a posterior cruciate ligament retractor to protect the medial and lateral collateral ligaments, the patellar tendon, the skin, the peroneal nerve and the other soft tissues. The upper tibia was sized with a trial baseplate. The posterior compartment was cleared of osteophytes and loose bodies. The periarticular anesthetic injection was used in the posterior compartment. The box cut for a posterior stabilized component was made. A preliminary reduction was performed with a trial femur, trial tibial baseplate and trial polyethylene. Soft-tissue balancing was now performed, and extension and rotation of the alignments was checked using a guide te in the tibial trial and a guide pin in the femur. A medial release was required, using a 10 blade scalpel, and a Pedraza elevator to elevate the medial structures from the upper medial tibia. The stability was assessed using different thicknesses of tibial articular surface to find satisfactory stability and good range of motion. The rotation of the tibial component was marked on the upper tibia. Final trial reduction was now performed verifying patella tracking and tibiofemoral stability and alignment. The tibia preparation was completed with a drill, saw, and fin punch at the previously noted rotation. The final implants were verified and opened. Outer gloves were changed by the operating team. The bone cuts were washed thoroughly with the [place] InterPulse device and dried. Two packages of [employer] bone cement were mixed in powdered form with Vancomycin 1gm and Tobramycin 1.2 gm, and then vacuum-mixed with the monomer, and placed into a cement gun. The cut surfaces of the bone were thoroughly dried with Blanco-tip suction and with laparotomy sponges for cement interdigitation. The final components were cemented into place. The knee was kept at full extension while the cement hardened, and excess cement was removed. A Betadine lavage was used throughout the surgical exposure, and allowed to sit in contact with the exposed joint surfaces for three minutes while the cement hardened. Tranexamic acid 1 g was redosed intravenously for additional intraoperative hemostasis. The tourniquet was released, and electrocautery was used for hemostasis. A final periarticular anesthetic injection was used for pain relief. A final check of [id number] and stability was made, and the polyethylene implant final size was chosen. The polyethylene implant was secured to the tibial baseplate, and the knee was reduced a final time and range of motion and stability was confirmed. Thorough irrigation was used. Hemovac and pain catheter were used.The arthrotomy was closed with interrupted [id number] # 1 PDS suture. The arthrotomy incision was then run with #1 STRATAFIX Symmetric PDS Plus Knotless suture. The subcutaneous tissues were reapproximated initially with 2-0 PDS . Next the subcuticular layer was reapproximated in a running fashion with #3-0 Stratafix suture by my field administrative assistant. The skin incision was then covered and reinforced with Acticoat, followed by a JARED single use negative pressure wound therapy dressing Soft roll and an Abhi wrap were applied. Needle and sponge counts were correct. There were no apparent complications. The patient returned to the recovery room in stable condition. NICKY KNOWLES MD Nov 27, 2018 11:26
[2018-11-27] MEDS ORDERED: 0.9 % SODIUM CHLORIDE 10 ML DISP.SYRIN. IV PRN (11:30)
[2018-11-27] MEDS ORDERED: CALCIUM CARBONATE 500 MG TAB.CHEW PO PRN (11:30)
[2018-11-27] MEDS ORDERED: METOCLOPRAMIDE HCL 10 MG/2 ML VIAL. IV PRN (11:30)
[2018-11-27] MEDS ORDERED: PROCHLORPERAZINE 5 MG TABLET. PO PRN (11:30)
[2018-11-27] MEDS ORDERED: ZOLPIDEM 5 MG TABLET. PO PRN (11:30)
[2018-11-27] MEDS ORDERED: DEXTROSE 50% 25 GM / 50ML DISP.SYRIN. IV PRN (11:30)
[2018-11-27] MEDS ORDERED: diphenhydrAMINE 50 MG/ML VIAL IV PRN (11:30)
[2018-11-27] MEDS ORDERED: MORPHINE SULFATE 4 MG/ML VIAL. IV PRN (11:30)
[2018-11-27] MEDS ORDERED: MORPHINE SULFATE 10 MG/ML VIAL. ONE (11:37)
[2018-11-27] MEDS: ONDANSETRON PF 4 MG/2 ML VIAL. IV SCH ×2 (12:00→18:00)
[2018-11-27] MEDS ORDERED: TRIAMCINOLONE ACETONIDE 0.1% TOPICAL CREAM 15GM TUBE. TP PRN (12:00)
[2018-11-27] MEDS: ONDANSETRON ODT 4 MG TAB.RAPDIS. PO SCH ×2 (12:00→16:57)
[2018-11-27] MEDS: fentaNYL PF VIAL 100 MCG/2 ML VIAL IV PRN ×2 (12:10→12:17)
--- NOTE | 2018-11-27 12:40 | RAD ---
EXAM: AP and crosstable lateral views right knee DATE: 11/27/2018 11:30 AM INDICATION: POST OP KNEE IN PACU. COMPARISON: No Prior FINDINGS: 2 views right knee demonstrate a right total knee arthroplasty, in good alignment without definite hardware complication. Components are well seated without significant periprosthetic lucency. Expected soft tissue changes including intra-articular and soft tissue gas and drain are seen. No evidence of acute fracture or dislocation. IMPRESSION: Right total knee arthroplasty, in good alignment without definite hardware complication or fracture. Electronically signed by: Reagan Santiago MD (11/27/2018 12:37 PM) [id number]
--- NOTE | 2018-11-27 14:46 | NUR ---
Moises was received from recovery. daughters at bedside. denies allergies. he has a walker. he has good sensation, motions and pulses bilateral lower extremities. dressing to right knee is clean dry and intact. Hemovac unclamped with an immediate return serosanguineous drainage, iac and justin dressing intact. he is rating his pain "4".
[2018-11-27] MEDS: SENNOSIDES/DOCUSATE 8.6/50MG TABLET. PO SCH (15:19)
[2018-11-27] MEDS: oxyCODONE/APAP 5/325 1 TAB TABLET PO PRN ×2 (15:19→20:44)
[2018-11-27] MEDS: MULTIVITAMIN with MINERAL TABLET. PO SCH (15:19)
[2018-11-27] MEDS: KETOROLAC 30MG VIAL 30 MG, BUPIVACAINE MPF 0.25% 20 ML, EPINEPHrine 0.5 MG in TOTAL VOL... INT ART SCH (16:56)
[2018-11-27] MEDS: metFORMIN 500 MG TABLET PO SCH (16:57)
[2018-11-27] MEDS: LISINOPRIL 20 MG TABLET PO SCH (17:01)
[2018-11-27] MEDS: IV NORMAL SALINE 1000ML BAG 1,000 ML IV SCH (17:01)
[2018-11-27] MEDS: INSULIN LISPRO 300 UNITS/3 ML INSULN.PEN. SQ SCH (17:04)
--- NOTE | 2018-11-27 18:01 | NUR ---
voided 150 cc. bladder area is tender to touch. bladder scan completed 750cc. straight cath with a return of 650 yellow urine. states feels much better.
[2018-11-27] MEDS: ASPIRIN ENTERIC COATED 325 MG TABLET.DR. PO SCH (20:43)
[2018-11-27] MEDS: FINASTERIDE 5 MG TABLET. PO SCH (20:43)
[2018-11-27] MEDS: TAMSULOSIN 0.4 MG CAP.ER.24H. PO SCH (20:43)
[2018-11-27] MEDS ORDERED: KETOCONAZOLE 2% TOPICAL CREAM 15GM TUBE. TP SCH (21:00)
--- NOTE | 2018-11-27 21:02 | NUR ---
C/o "itching", Benadryl given po. Ice packs to right knee, Percocet given po.
[2018-11-27] MEDS: diphenhydrAMINE HCL 25 MG CAPSULE PO PRN (21:08)
[2018-11-28 03:21] VITALS: BP 91/43
[2018-11-28] MEDS: oxyCODONE/APAP 5/325 1 TAB TABLET PO PRN ×2 (04:47→08:14)
[2018-11-28] MEDS: ENOXAPARIN 40 MG/0.4 ML SYRINGE. SQ SCH (04:48)
[2018-11-28] MEDS ORDERED: MAGNESIUM HYDROXIDE 2,400 MG/30 ML ORAL.SUSP. PO PRN (06:00)
[2018-11-28] MEDS: ONDANSETRON PF 4 MG/2 ML VIAL. IV SCH ×2 (06:00)
[2018-11-28] MEDS: KETOROLAC 30MG VIAL 30 MG, BUPIVACAINE MPF 0.25% 20 ML, EPINEPHrine 0.5 MG in TOTAL VOL... INT ART SCH (06:00)
[2018-11-28] MEDS: ONDANSETRON ODT 4 MG TAB.RAPDIS. PO SCH ×2 (06:00)
[2018-11-28 06:34] VITALS: BP 92/62
[2018-11-28] MEDS: INSULIN LISPRO 300 UNITS/3 ML INSULN.PEN. SQ SCH ×3 (08:00→17:00)
[2018-11-28 08:06] LABS: HEMATOCRIT 39.2 % (39.0-53.0); HEMOGLOBIN 12.9 g/dL (13.0-17.5); RED BLOOD COUNT 4.33 x10^6/uL (4.30-5.70); RED CELL DISTRIBUTION WIDTH 14.1 % (11.5-14.5); WHITE BLOOD COUNT 12.5 x10^3/uL (4.0-11.0)
[2018-11-28] MEDS: SENNOSIDES/DOCUSATE 8.6/50MG TABLET. PO SCH (08:15)
[2018-11-28] MEDS: MELOXICAM 7.5 MG TABLET PO SCH (08:15)
[2018-11-28] MEDS: MULTIVITAMIN with MINERAL TABLET. PO SCH (08:15)
[2018-11-28] MEDS: ASPIRIN ENTERIC COATED 325 MG TABLET.DR. PO SCH ×2 (08:16→20:47)
[2018-11-28] MEDS: metFORMIN 500 MG TABLET PO SCH ×2 (08:16→17:14)
[2018-11-28] MEDS: PSYLLIUM HUSK (SUGAR FREE) 1 PKT PACKET PO SCH (10:22)
[2018-11-28 11:15] VITALS: BP 120/67
[2018-11-28] MEDS: IV NORMAL SALINE 1000ML BAG 1,000 ML IV SCH (11:30)
[2018-11-28] MEDS ORDERED: ONDANSETRON PF 4 MG/2 ML VIAL. IV PRN (12:00)
[2018-11-28] MEDS ORDERED: ONDANSETRON ODT 4 MG TAB.RAPDIS. PO PRN (12:00)
[2018-11-28] MEDS: oxyCODONE/APAP 7.5/325 1 TAB TABLET PO PRN ×3 (12:34→20:47)
[2018-11-28] MEDS: LISINOPRIL 20 MG TABLET PO SCH (12:36)
[2018-11-28] MEDS ORDERED: BISACODYL 10 MG SUPP.RECT. PR PRN (16:00)
--- NOTE | 2018-11-28 17:04 | PDOC ---
PROGRESS NOTES Subjective Subjective Doing well, no major complaints. Pain controlled with medication. Objective Vital Signs Vital Signs Date Time Temp Pulse Resp B/P (MAP) Pulse Ox O2 Delivery O2 Flow Rate FiO2 11/28/18 12:36 80 120/67 11/28/18 12:34 Room Air 11/28/18 11:15 97.8 18 96 97.8 11/27/18 14:37 2.0 Physical Exam Pain catheter and Hemovac and then removed. Thigh and calf are soft. Good active range of motion ankle and foot with no evidence of DVT, neurovascular injury, or compartment syndrome. Labs Laboratory Tests Test 11/27/18 07:27 11/27/18 12:02 11/27/18 16:24 11/28/18 06:41 Glucose (Fingerstick) 98 mg/dL (70-99) 166 mg/dL (70-99) 196 mg/dL (70-99) 104 mg/dL (70-99) Test 11/28/18 07:33 11/28/18 11:41 11/28/18 16:22 White Blood Count 12.5 x10^3/uL (4.0-11.0) Red Blood Count 4.33 x10^6/uL (4.30-5.70) Hemoglobin 12.9 g/dL (13.0-17.5) Hematocrit 39.2 % (39.0-53.0) Mean Corpuscular Volume 91 fL (79-100) Mean Corpuscular Hemoglobin 30 pg (25-35) Mean Corpuscular Hemoglobin Concent 33 g/dL (31-37) Red Cell Distribution Width 14.1 % (11.5-14.5) Platelet Count 205 x10^3/uL (140-400) Glucose (Fingerstick) 110 mg/dL (70-99) 112 mg/dL (70-99) Laboratory Tests Test 11/28/18 06:41 11/28/18 07:33 11/28/18 11:41 11/28/18 16:22 Glucose (Fingerstick) 104 mg/dL (70-99) 110 mg/dL (70-99) 112 mg/dL (70-99) White Blood Count 12.5 x10^3/uL (4.0-11.0) Red Blood Count 4.33 x10^6/uL (4.30-5.70) Hemoglobin 12.9 g/dL (13.0-17.5) Hematocrit 39.2 % (39.0-53.0) Mean Corpuscular Volume 91 fL (79-100) Mean Corpuscular Hemoglobin 30 pg (25-35) Mean Corpuscular Hemoglobin Concent 33 g/dL (31-37) Red Cell Distribution Width 14.1 % (11.5-14.5) Platelet Count 205 x10^3/uL (140-400) Imaging Report reviewed, images independently reviewed. Satisfactory total knee arthroplasty without evidence of complications. EXAM: AP and crosstable lateral views right knee DATE: 11/27/2018 11:30 AM INDICATION: POST OP KNEE IN PACU. COMPARISON: No Prior FINDINGS: 2 views right knee demonstrate a right total knee arthroplasty, in good alignment without definite hardware complication. Components are well seated without significant periprosthetic lucency. Expected soft tissue changes including intra-articular and soft tissue gas and drain are seen. No evidence of acute fracture or dislocation. IMPRESSION: Right total knee arthroplasty, in good alignment without definite hardware complication or fracture. Electronically signed by: Reagan Santiago MD (11/27/2018 12:37 PM) [facility] DICTATED and SIGNED BY: REAGAN SANTIAGO MD DATE: 11/27/18 1237 Assessment Assessment POD# 1 after TKA Plan Plan of Care Continue DVT prophylaxis and physical therapy. Elevated blood blood cell count is perhaps due to perioperative steroids given for prevention of postoperative nausea and vomiting. We will observe. NICKY MEYER MD Nov 28, 2018 17:04
[2018-11-28 17:43] VITALS: BP 109/76
[2018-11-28] MEDS: TAMSULOSIN 0.4 MG CAP.ER.24H. PO SCH (20:47)
[2018-11-28] MEDS: FINASTERIDE 5 MG TABLET. PO SCH (20:47)
[2018-11-28] MEDS: diphenhydrAMINE HCL 25 MG CAPSULE PO PRN (20:47)
--- NOTE | 2018-11-28 23:13 | NUR ---
Saline lock DC'd earlier per pt request. Right knee dressing foam changed due to increased drainage. PADMA hose removed.
[2018-11-29] MEDS: oxyCODONE/APAP 7.5/325 1 TAB TABLET PO PRN ×6 (00:57→21:16)
[2018-11-29 04:24] LABS: HEMATOCRIT 35.9 % (39.0-53.0); HEMOGLOBIN 12.4 g/dL (13.0-17.5)
[2018-11-29] MEDS: ENOXAPARIN 40 MG/0.4 ML SYRINGE. SQ SCH (05:05)
[2018-11-29 05:57] VITALS: BP 103/69
[2018-11-29] MEDS: INSULIN LISPRO 300 UNITS/3 ML INSULN.PEN. SQ SCH ×3 (07:08→16:11)
[2018-11-29] MEDS: PSYLLIUM HUSK (SUGAR FREE) 1 PKT PACKET PO SCH (07:46)
[2018-11-29] MEDS: metFORMIN 500 MG TABLET PO SCH ×2 (07:47→16:12)
[2018-11-29] MEDS: MELOXICAM 7.5 MG TABLET PO SCH (07:47)
[2018-11-29] MEDS: MULTIVITAMIN with MINERAL TABLET. PO SCH (07:47)
[2018-11-29] MEDS: ASPIRIN ENTERIC COATED 325 MG TABLET.DR. PO SCH ×2 (07:47→21:15)
[2018-11-29] MEDS: SENNOSIDES/DOCUSATE 8.6/50MG TABLET. PO SCH (07:47)
[2018-11-29] MEDS: LISINOPRIL 20 MG TABLET PO SCH (07:50)
--- NOTE | 2018-11-29 13:05 | PDOC ---
PROGRESS NOTES Subjective Subjective No c/o Objective Vital Signs Vital Signs Date Time Temp Pulse Resp B/P (MAP) Pulse Ox O2 Delivery O2 Flow Rate FiO2 11/29/18 10:08 Room Air 11/29/18 07:50 69 117/73 11/29/18 06:06 20 11/29/18 05:57 97.9 95 97.9 11/27/18 14:37 2.0 Physical Exam Aquacel dressing dry. Pain catheter and hemovac have been removed. Minimal erythema/warmth. Calf soft, NT, and Homans neg. Good AROM for ankle DF/PF. Not yet safely ambulating with walker. Still requires max assist and gait belt by nurse, aide or therapist to get from bed or chair to walker. Labs Laboratory Tests Test 11/27/18 16:24 11/28/18 06:41 11/28/18 07:33 11/28/18 11:41 Glucose (Fingerstick) 196 mg/dL (70-99) 104 mg/dL (70-99) 110 mg/dL (70-99) White Blood Count 12.5 x10^3/uL (4.0-11.0) Red Blood Count 4.33 x10^6/uL (4.30-5.70) Hemoglobin 12.9 g/dL (13.0-17.5) Hematocrit 39.2 % (39.0-53.0) Mean Corpuscular Volume 91 fL (79-100) Mean Corpuscular Hemoglobin 30 pg (25-35) Mean Corpuscular Hemoglobin Concent 33 g/dL (31-37) Red Cell Distribution Width 14.1 % (11.5-14.5) Platelet Count 205 x10^3/uL (140-400) Test 11/28/18 16:22 11/29/18 03:40 11/29/18 06:37 11/29/18 11:40 Glucose (Fingerstick) 112 mg/dL (70-99) 124 mg/dL (70-99) 119 mg/dL (70-99) Hemoglobin 12.4 g/dL (13.0-17.5) Hematocrit 35.9 % (39.0-53.0) Mean Corpuscular Hemoglobin Concent 34 g/dL (31-37) Laboratory Tests Test 11/28/18 16:22 11/29/18 03:40 11/29/18 06:37 11/29/18 11:40 Glucose (Fingerstick) 112 mg/dL (70-99) 124 mg/dL (70-99) 119 mg/dL (70-99) Hemoglobin 12.4 g/dL (13.0-17.5) Hematocrit 35.9 % (39.0-53.0) Mean Corpuscular Hemoglobin Concent 34 g/dL (31-37) Assessment Assessment POD 2 TKA Plan Plan of Care Continue PT for strengthening and for safe ambulation. Continue DVT prophylaxis. Discharge planning for tomorrow. NICKY MEYER MD Nov 29, 2018 13:04
[2018-11-29 18:00] VITALS: BP 113/65
[2018-11-29] MEDS: FINASTERIDE 5 MG TABLET. PO SCH (21:15)
[2018-11-29] MEDS: TAMSULOSIN 0.4 MG CAP.ER.24H. PO SCH (21:15)
[2018-11-29] MEDS: diphenhydrAMINE HCL 25 MG CAPSULE PO PRN (21:16)
[2018-11-30] MEDS: oxyCODONE/APAP 7.5/325 1 TAB TABLET PO PRN ×4 (02:29→15:49)
[2018-11-30 06:28] VITALS: BP 115/62
[2018-11-30] MEDS: ENOXAPARIN 40 MG/0.4 ML SYRINGE. SQ SCH (06:31)
[2018-11-30] MEDS: INSULIN LISPRO 300 UNITS/3 ML INSULN.PEN. SQ SCH ×3 (07:21→15:22)
[2018-11-30 07:49] LABS: BASO % 1 % (0-3); EOS # 0.2 x10^3/uL (0.0-0.7); EOS % 3 % (0-3); HEMATOCRIT 38.6 % (39.0-53.0); HEMOGLOBIN 13.2 g/dL (13.0-17.5); LYMPH # 2.3 x10^3/uL (1.0-4.8); LYMPH % 28 % (24-48); MEAN CORPUSCULAR HEMOGLOBIN 31 pg (25-35); MEAN CORPUSCULAR HGB CONC 34 g/dL (31-37); MEAN CORPUSCULAR VOLUME 91 fL (79-100); MONO # 0.9 x10^3/uL (0.0-1.1); MONO % 11 % (0-9); NEUT # 4.8 x10^3uL (1.8-7.7); NEUT % 58 % (31-73); PLATELET COUNT 195 x10^3/uL (140-400); RED BLOOD COUNT 4.26 x10^6/uL (4.30-5.70); WHITE BLOOD COUNT 8.2 x10^3/uL (4.0-11.0)
[2018-11-30] MEDS: PSYLLIUM HUSK (SUGAR FREE) 1 PKT PACKET PO SCH (07:52)
[2018-11-30] MEDS: MULTIVITAMIN with MINERAL TABLET. PO SCH (07:52)
[2018-11-30] MEDS: metFORMIN 500 MG TABLET PO SCH ×2 (07:52→15:50)
[2018-11-30] MEDS: SENNOSIDES/DOCUSATE 8.6/50MG TABLET. PO SCH (07:53)
[2018-11-30] MEDS: MELOXICAM 7.5 MG TABLET PO SCH (07:53)
[2018-11-30] MEDS: ASPIRIN ENTERIC COATED 325 MG TABLET.DR. PO SCH (07:53)
[2018-11-30] MEDS: LISINOPRIL 20 MG TABLET PO SCH (07:54)
--- NOTE | 2018-11-30 12:29 | PDOC ---
PROGRESS NOTES Subjective Subjective No complaints. Planning on discharge today to [facility]. Objective Vital Signs Vital Signs Date Time Temp Pulse Resp B/P (MAP) Pulse Ox O2 Delivery O2 Flow Rate FiO2 11/30/18 11:51 Room Air 11/30/18 07:54 114/62 11/30/18 06:28 97.9 72 16 96 97.9 11/27/18 14:37 2.0 Physical Exam JARED intact and dry. Good AROM ankle. Calf soft and nontender. Minimal warmth or erythema. Labs Laboratory Tests Test 11/28/18 16:22 11/29/18 03:40 11/29/18 06:37 11/29/18 11:40 Glucose (Fingerstick) 112 mg/dL (70-99) 124 mg/dL (70-99) 119 mg/dL (70-99) Hemoglobin 12.4 g/dL (13.0-17.5) Hematocrit 35.9 % (39.0-53.0) Mean Corpuscular Hemoglobin Concent 34 g/dL (31-37) Test 11/29/18 16:11 11/30/18 06:27 11/30/18 07:15 Glucose (Fingerstick) 129 mg/dL (70-99) 113 mg/dL (70-99) White Blood Count 8.2 x10^3/uL (4.0-11.0) Red Blood Count 4.26 x10^6/uL (4.30-5.70) Hemoglobin 13.2 g/dL (13.0-17.5) Hematocrit 38.6 % (39.0-53.0) Mean Corpuscular Volume 91 fL (79-100) Mean Corpuscular Hemoglobin 31 pg (25-35) Mean Corpuscular Hemoglobin Concent 34 g/dL (31-37) Red Cell Distribution Width 14.0 % (11.5-14.5) Platelet Count 195 x10^3/uL (140-400) Neutrophils (%) (Auto) 58 % (31-73) Lymphocytes (%) (Auto) 28 % (24-48) Monocytes (%) (Auto) 11 % (0-9) Eosinophils (%) (Auto) 3 % (0-3) Basophils (%) (Auto) 1 % (0-3) Neutrophils # (Auto) 4.8 x10^3uL (1.8-7.7) Lymphocytes # (Auto) 2.3 x10^3/uL (1.0-4.8) Monocytes # (Auto) 0.9 x10^3/uL (0.0-1.1) Eosinophils # (Auto) 0.2 x10^3/uL (0.0-0.7) Basophils # (Auto) 0.0 x10^3/uL (0.0-0.2) Laboratory Tests Test 11/29/18 16:11 11/30/18 06:27 11/30/18 07:15 Glucose (Fingerstick) 129 mg/dL (70-99) 113 mg/dL (70-99) White Blood Count 8.2 x10^3/uL (4.0-11.0) Red Blood Count 4.26 x10^6/uL (4.30-5.70) Hemoglobin 13.2 g/dL (13.0-17.5) Hematocrit 38.6 % (39.0-53.0) Mean Corpuscular Volume 91 fL (79-100) Mean Corpuscular Hemoglobin 31 pg (25-35) Mean Corpuscular Hemoglobin Concent 34 g/dL (31-37) Red Cell Distribution Width 14.0 % (11.5-14.5) Platelet Count 195 x10^3/uL (140-400) Neutrophils (%) (Auto) 58 % (31-73) Lymphocytes (%) (Auto) 28 % (24-48) Monocytes (%) (Auto) 11 % (0-9) Eosinophils (%) (Auto) 3 % (0-3) Basophils (%) (Auto) 1 % (0-3) Neutrophils # (Auto) 4.8 x10^3uL (1.8-7.7) Lymphocytes # (Auto) 2.3 x10^3/uL (1.0-4.8) Monocytes # (Auto) 0.9 x10^3/uL (0.0-1.1) Eosinophils # (Auto) 0.2 x10^3/uL (0.0-0.7) Basophils # (Auto) 0.0 x10^3/uL (0.0-0.2) Assessment Assessment POD #3 TKA Plan Plan of Care Discharge planning for today. Continue PT and DVT prophylaxis. F/U 10-14 days in office. NICKY MEYER MD Nov 30, 2018 12:29
[2018-11-30] MEDS ORDERED: ASPI325T11 PO (12:35)
[2018-11-30] MEDS ORDERED: ENOX40DI3 SQ (12:35)
--- NOTE | 2018-11-30 12:36 | SNU/HH DC ---
DISCHARGE ORDERS DISCHARGE INFORMATION: DISCHARGE DATE: Nov 30, 2018 FINAL DIAGNOSIS osteoarthritis right knee history of DVT CONDITION ON DISCHARGE: Stable CODE STATUS: Code Status: Full MCFP: SNF STAY <30 DAYS: Yes HOSPICE: HOSPICE: No HOSPICE EVAL & TREAT: No LTAC: ADMIT TO LTAC: No POST DISCHARGE ORDERS: ACTIVITY ORDERS: Activity as tolerated, Avoid exertion, Progressive ambulation WEIGHT BEARING STATUS: As tolerated BATHING ORDERS: Shower-keep dressing dry DIET AFTER DISCHARGE: Regular WOUND/INCISION CARE: Ice to area for comfort, Keep wound/cast CDI, Keep wound elevated, Do not change dressing, Reinforce dressing PRN OTHER WOUND INSTRUCTIONS: DO NOT change JARED dressing, disconnect battery on CHECKS AFTER DISCHARGE: CHECKS AFTER DISCHARGE: Check blood press - daily, Check blood sugar, ac/hs, Check your Temp as needed FOLLOW-UP: ADDITIONAL FOLLOW-UP: Dr Knowles in 10-14 days [phone] ANTICOAGULATION F/U NEEDED: Aspirin EC 325 mg po qd x30 days. Also use Lovenox 40 mg SQ qd x14 days. TREATMENT/EQUIPMENT ORDERS: ADAPTIVE EQUIPMENT NEEDED: Front wheeled walker Physical Therapy For: Evalulation/Treatment Occupational Therapy For: Evaluation/Treatment DISCHARGE MEDICATIONS: Home Meds Active Scripts Aspirin (ASPIRIN EC) 325 Mg Tablet.dr, 1 TAB PO DAILY for prevent blood clots for 30 Days, #30 TAB 0 Refills Prov:NICKY KNOWLES MD 11/30/18 Enoxaparin Sodium (ENOXAPARIN SODIUM) 40 Mg/0.4 Ml Disp.syrin, 40 MG SQ Q24H for prevent blood clots for 14 Days, #14 DIS.SYR 40 mg SQ daily for 14 days Prov:NICKY KNOWLES MD 11/30/18 Reported Medications Ketoconazole (KETOCONAZOLE) 15 Gm Cream..g., 15 GM TP BID for RASH, EACH 11/02/18 Triamcinolone Acetonide (TRIAMCINOLONE ACETONIDE 0.025% CREAM) 15 Gm Cream..g., 1 JACEY TP PRN DAILY PRN for RASH, TUBE 11/02/18 Meloxicam (MELOXICAM) 15 Mg Tablet, 15 MG PO DAILY for ANTIINFLAMMATORY, TAB 11/02/18 Enalapril Maleate (VASOTEC) 20 Mg Tablet, 10 MG PO DAILY for TO CONTROL BP, TAB 11/02/18 Finasteride (FINASTERIDE) 5 Mg Tablet, 5 MG PO HS for ENLARGED PROSTATE, TAB 11/02/18 Tamsulosin Hcl (FLOMAX) 0.4 Mg Cap.er.24h, 1 CAP PO HS for BPH, #30 CAP 11 Refills 01/22/17 Metformin Hcl (METFORMIN HCL) 500 Mg Tablet, 1000 MG PO BID for TO CONTROL DIABETES, #60 TAB 3 Refills 12/19/16 NICKY KNOWLES MD Nov 30, 2018 12:36
--- NOTE | 2018-11-30 12:39 | PDOC3 ---
Discharge Summary Visit Information Date of Admission: Nov 27, 2018 Date of Discharge: Nov 30, 2018 Final Diagnosis right knee osteoarthritis history of DVT Brief Hospital Course Allergies Allergies Coded Allergies Type Severity Reaction Last Updated Verified No Known Drug Allergies 01/23/17 No Vital Signs Vital Signs Date Time Temp Pulse Resp B/P (MAP) Pulse Ox O2 Delivery O2 Flow Rate FiO2 11/30/18 11:51 Room Air 11/30/18 07:54 114/62 11/30/18 06:28 97.9 72 16 96 97.9 Lab Results Laboratory Tests Test 11/28/18 16:22 11/29/18 03:40 11/29/18 06:37 11/29/18 11:40 Glucose (Fingerstick) 112 mg/dL (70-99) 124 mg/dL (70-99) 119 mg/dL (70-99) Hemoglobin 12.4 g/dL (13.0-17.5) Hematocrit 35.9 % (39.0-53.0) Mean Corpuscular Hemoglobin Concent 34 g/dL (31-37) Test 11/29/18 16:11 11/30/18 06:27 11/30/18 07:15 Glucose (Fingerstick) 129 mg/dL (70-99) 113 mg/dL (70-99) White Blood Count 8.2 x10^3/uL (4.0-11.0) Red Blood Count 4.26 x10^6/uL (4.30-5.70) Hemoglobin 13.2 g/dL (13.0-17.5) Hematocrit 38.6 % (39.0-53.0) Mean Corpuscular Volume 91 fL (79-100) Mean Corpuscular Hemoglobin 31 pg (25-35) Mean Corpuscular Hemoglobin Concent 34 g/dL (31-37) Red Cell Distribution Width 14.0 % (11.5-14.5) Platelet Count 195 x10^3/uL (140-400) Neutrophils (%) (Auto) 58 % (31-73) Lymphocytes (%) (Auto) 28 % (24-48) Monocytes (%) (Auto) 11 % (0-9) Eosinophils (%) (Auto) 3 % (0-3) Basophils (%) (Auto) 1 % (0-3) Neutrophils # (Auto) 4.8 x10^3uL (1.8-7.7) Lymphocytes # (Auto) 2.3 x10^3/uL (1.0-4.8) Monocytes # (Auto) 0.9 x10^3/uL (0.0-1.1) Eosinophils # (Auto) 0.2 x10^3/uL (0.0-0.7) Basophils # (Auto) 0.0 x10^3/uL (0.0-0.2) Laboratory Tests Test 11/29/18 16:11 11/30/18 06:27 11/30/18 07:15 Glucose (Fingerstick) 129 mg/dL (70-99) 113 mg/dL (70-99) White Blood Count 8.2 x10^3/uL (4.0-11.0) Red Blood Count 4.26 x10^6/uL (4.30-5.70) Hemoglobin 13.2 g/dL (13.0-17.5) Hematocrit 38.6 % (39.0-53.0) Mean Corpuscular Volume 91 fL (79-100) Mean Corpuscular Hemoglobin 31 pg (25-35) Mean Corpuscular Hemoglobin Concent 34 g/dL (31-37) Red Cell Distribution Width 14.0 % (11.5-14.5) Platelet Count 195 x10^3/uL (140-400) Neutrophils (%) (Auto) 58 % (31-73) Lymphocytes (%) (Auto) 28 % (24-48) Monocytes (%) (Auto) 11 % (0-9) Eosinophils (%) (Auto) 3 % (0-3) Basophils (%) (Auto) 1 % (0-3) Neutrophils # (Auto) 4.8 x10^3uL (1.8-7.7) Lymphocytes # (Auto) 2.3 x10^3/uL (1.0-4.8) Monocytes # (Auto) 0.9 x10^3/uL (0.0-1.1) Eosinophils # (Auto) 0.2 x10^3/uL (0.0-0.7) Basophils # (Auto) 0.0 x10^3/uL (0.0-0.2) Brief Hospital Course 68 old who presented with knee osteoarthritis, for elective total knee arthroplasty. The patient underwent total knee arthroplasty under general anesthesia the day of admission. Perioperative antibiotics and DVT prophylaxis were used. Postoperatively physical therapy and case management were consulted. The patient progressed and is stable for discharge. Discharge Information Condition at Discharge: Stable Follow Up: Weeks Disposition/Orders: D/C to Another Facility Scheduled Aspirin (Aspirin Ec), 1 TAB PO DAILY Enalapril Maleate (Vasotec), 10 MG PO DAILY, (Reported) Enoxaparin Sodium (Enoxaparin Sodium), 40 MG SQ Q24H Finasteride (Finasteride), 5 MG PO HS, (Reported) Ketoconazole (Ketoconazole), 15 GM TP BID, (Reported) Meloxicam (Meloxicam), 15 MG PO DAILY, (Reported) Metformin Hcl (Metformin Hcl), 1,000 MG PO BID, (Reported) Tamsulosin Hcl (Flomax), 1 CAP PO HS, (Reported) Scheduled PRN Triamcinolone Acetonide (Triamcinolone Acetonide 0.025% Cream), 1 JACEY TP PRN DAILY PRN for RASH, (Reported) Patient Instructions Patient Instructions Patient Instructions Continue to WBAT with walker. Keep dressing dry and intact. F/U with [facility] in 10-14 days. Call for appointment. Physical therapy for TKA Continue DVT prophylaxis. Use aspirin 325 mg daily for 30 days, and in addition use Lovenox 40 mg SQ daily for 14 days.. NICKY MEYER MD Nov 30, 2018 12:38
[2018-11-30] MEDS ORDERED: OXYC1TAB15 PO (12:47)
[2018-11-30 16:00] VITALS: BP 126/64
--- NOTE | 2018-11-30 16:10 | NUR ---
Patient left the building to go to [facility] per transport personnel in a wheelchair around 1605. Discharge instructions given to him prior to transportation and Report was called to RAJAN Forbes at [facility] around 1515. Patient stable upon transfer with no concerns noted. He left with all of his belongings.
--- NOTE | 2018-12-03 13:08 | PATHOLOGY ---
[facility] Accession Number: [id number] . 01 Material submitted: . RIGHT KNEE BONE . 01 Clinical history: . Right knee osteoarthritis . 02 Diagnosis: "Right knee bone", removal: - Degenerative osteoarthritis. (SKM:[place]; 11/29/2018) MBR/11/29/2018 . 02 Electronically signed: . Aleksandr Edwards MD, Pathologist NPI- [id number] . 01 Gross description: . The specimen is received in formalin, labeled "Joselo Moya, right knee bone", are multiple segments of maurer-brown bone, frank-white fibrous and maurer rubbery tissues consisting of recognizable portion of tibia plateau, patella and meniscus measuring 10.5 x 7.5 x 3.0 cm in aggregate. Eburnation and peripheral osteophytes are identified. Superintendent Pier tissue is submitted in A1 after decalcification. ([facility]; 11/27/2018) SHS/SHS . 02 Pathologist provided ICD-10: M17.11 . 02 CPT . 265673, [id number] Specimen Comment: A courtesy copy of this report has been sent to Specimen Comment: [phone], . Specimen Comment: Report sent to / DR BRIGGS Performed at: 01 [facility] [address], [place] [id number] MD Jose Martinez MD Phone: [phone] Performed at: 02 [facility] [address], [place] [id number] MD Montrell Charlton MD Phone: [phone]
== END 2018-11-30 16:05 | DRG 470 ==
LOC: OPSVCIP 06:39 → 4 SOUTHEST 13:40
PROVIDERS: ADMIT Orthopaedic Surgery; ATTEND Orthopaedic Surgery
PROC: 0SRC069 Replacement of Right Knee Joint with Oxidized Zirconium on Polyethylene Synthetic Substitute, Cemented, Open Approach (ICD-10-PCS; principal; 2018-11-27 09:45)
DX: M17.11 Unilateral primary osteoarthritis, right knee (principal); E11.9 Type 2 diabetes mellitus without complications; Z80.42 Family history of malignant neoplasm of prostate; Z86.718 Personal history of other venous thrombosis and embolism
CPT/HCPCS: 36415; 73560; 82962; 85014; 85018; 85025; 85027; 86850; 86900; 86901; 88305; 88311; A7015; C1713; J0171; J0690; J0696; J0780; J1100; J1170; J1200; J1650; J1815; J1885; J2001; J2270; J2405; J2704; J2795; J3010; J3260; J3370; J3490; J7030; J7120; Q0162; Q0163; 97116; 97150; 97530; 97535; A4461; C1769